=== PATIENT | female | born 1945 | race Caucasian/White ===

== ENCOUNTER 2018-08-07 15:04 | Inpatient (IN) | payer OTHER, BC ==
--- OUTSIDE RECORDS SUMMARY | 2018-08-07 15:09 | XMS REPORT ---
:1945 [facility] Organization [facility] Address [address] [place] [address] [place] [id number] Care Team Providers Name Role Phone Unavailable Unavailable Unavailable Problems This patient has no known problems. Allergies, Adverse Reactions, Alerts This patient has no known allergies or adverse reactions. Medications This patient has no known medications.
[2018-08-07 15:36] LABS: Arterial Blood Carboxyhemoglob 1.9 % (0-1.5); Blood Gas Oxyhemoglobin 92.4 % (94-97); Blood O2 Saturation 96.2 % (92-98.5)
[2018-08-07] MEDS ORDERED: ASPIRIN 81 MG CHEWABLE TABLET ONE (15:41)
[2018-08-07 16:00] LABS: Absolute Lymphocytes (CBC) 0.9 K/uL (0.7-4.9); Absolute Monocytes 0.8 K/uL (0.1-1.3); Absolute Neutrophil 6.8 K/uL (1.8-8.0); Basophils % 0.5 % (0-1.3); Eosinophils % 0.1 % (0-4.4); Hematocrit 51.7 % (36.0-45.0); Lymphocytes % 10.3 % (15.3-44.8); MPV 7.5 fL (7.6-11.3); Monocytes % 9.6 % (3.3-12.3)
--- NOTE | 2018-08-07 16:24 | RAD REPORT ---
EXAM DESCRIPTION: RAD - Chest Single View - 08/07/2018 4:11 pm CLINICAL HISTORY: Cough, shortness of breath, COPD COMPARISON: March 2014 TECHNIQUE: AP portable chest image was obtained 1555 hours . FINDINGS: Lungs are moderately fibrotic as a baseline. The fibrotic lung pattern has not substantial ly progressed from 2014. Airspace opacification is present in the right lung base in the lateral mid right lung field. Trace stranding in the medial left lung base. No failure or volume overload. Heart size and vasculature are normal. Mediastinum is distorted by substantial rotation artifact. No pneumo thorax is seen. Trace right pleural effusion is not excluded. No acute bony abnormality seen. No acut e aortic findings suspected. IMPRESSION: Small right lung base pneumonia with minimal pneumonia changes in the right midlung fiel d as well. Minimal stranding in the medial left lung base. This is not definitive for infiltrate but can be ephraim tored on subsequent imaging. Baseline fibrosis.
[2018-08-07 16:25] LABS: Albumin 2.5 g/dL (3.4-5.0); Bilirubin Direct 0.4 mg/dL (0-0.2); Bilirubin Total 0.7 mg/dL (0.2-1.0); CKMB Creatine Kinase MB 1.6 ng/mL (0.3-3.6); Protein, Total 6.9 g/dL (6.4-8.2); Troponin (Emerg Dept Use Only) 0.17 ng/mL (0.0-0.045)
--- NOTE | 2018-08-07 16:39 | ER ---
Nurse's Notes [facility] Name: Denys Antoine Age: 73 yrs Sex: Female : 1945 Arrival Date: 08/07/2018 Time: 15:09 Bed 23 Private MD: Diagnosis: Respiratory failure, unspecified with hypercapnia;Chronic obstructive pulmonary disease with acute lower respiratory infection;Elevated troponin Presentation: 08/07 15:10 Presenting complaint: EMS states: called out for shortness of breath for several days, em on scene SPO2 78% RA, given A\\T\\A treatment on scene, 93% with treatment, coughing up green sputum, on arrival SPO2 72% RA, placed on nonrebreather at 15 L. Transition of care: patient was not received from another setting of care. Onset of symptoms was August 07, 2018. Risk Assessment: Do you want to hurt yourself or someone else? Patient reports no desire to harm self or others. Initial Sepsis Screen: Does the patient meet any 2 criteria? No. Patient's initial sepsis screen is negative. Does the patient have a suspected source of infection? Yes: Productive cough/pneumonia. Care prior to arrival: None. 15:10 Method Of Arrival: EMS: [facility] em 15:15 Acuity: HAO 2 ph Triage Assessment: 15:17 General: Appears uncomfortable, ill, Behavior is cooperative, flat, Reports feeling ill em for Denies fever. Pain: Denies pain. Respiratory: Reports shortness of breath Airway is patent Respiratory effort is even, unlabored, Respiratory pattern is regular, symmetrical, Breath sounds with wheezes bilaterally. Onset: The symptoms/episode began/occurred "couple days" per daughter, the patient has moderate shortness of breath. Historical: - Allergies: 15:17 No Known Allergies; em - PMHx: 15:17 "heart flutter"; COPD; Asthma; em - PSHx: 15:17 Tubal ligation; Tonsillectomy; Cholecystectomy; Gastric Bypass; toe surgery; perforated em ulcer repair; - Immunization history:: Flu vaccine is not up to date. - Social history:: Smoking status: unknown. - Ebola Screening: : Patient negative for fever greater than or equal to 101.5 degrees Fahrenheit, and additional compatible Ebola Virus Disease symptoms Patient denies exposure to infectious person Patient denies travel to an Ebola-affected area in the 21 days before illness onset No symptoms or risks identified at this time. Screenin:26 Abuse screen: Denies threats or abuse. Nutritional screening: No deficits noted. tw2 Tuberculosis screening: No symptoms or risk factors identified. Fall Risk Secondary diagnosis (15 points) impaired mobility. Assessment: 15:25 General: Appears distressed. Pain: Denies pain. Neuro: Level of Consciousness is obeys tw2 commands, Oriented to person. Cardiovascular: Heart tones S1 S2 Capillary refill < 3 seconds Rhythm is regular. Respiratory: Reports shortness of breath at rest Airway is patent Respiratory effort is even, labored, Respiratory pattern is tachypnea Breath sounds are diminished bilaterally. GI: No signs and/or symptoms were reported involving the gastrointestinal system. Abdomen is flat, Bowel sounds present X 4 quads. : No signs and/or symptoms were reported regarding the genitourinary system. EENT: No signs and/or symptoms were reported regarding the EENT system. Derm: No signs and/or symptoms reported regarding the dermatologic system. Musculoskeletal: Range of motion: intact in all extremities. 15:39 Reassessment: respiratory at bedside at this time, pt placed on bipap at this time d/t tw2 elevated CO2. 16:36 Reassessment: Patient appears in no apparent distress at this time. Patient and/or tw2 family updated on plan of care and expected duration. Pain level reassessed. 17:13 Reassessment: Patient appears in no apparent distress at this time. Patient and/or tw2 family updated on plan of care and expected duration. Pain level reassessed. 19:30 Reassessment: Patient appears in no apparent distress at this time. Patient and/or aa1 family updated on plan of care and expected duration. Pain level reassessed. Patient is alert, oriented x 3, equal unlabored respirations, skin warm/dry/pink. Pt awaiting admission to ICU. Requesting food. Pt given sandwich and fruit cup and placed on nasal cannula at 5L at this time; tolerates well. 20:00 Reassessment: records supervisor aware that pt is in need of ICU bed. Will notify ED once aa1 pt has received a bed. 20:30 Reassessment: Patient appears in no apparent distress at this time. Patient and/or aa1 family updated on plan of care and expected duration. Pain level reassessed. Patient is alert, oriented x 3, equal unlabored respirations, skin warm/dry/pink. Pt still awaiting ICU bed. 21:14 Reassessment: Patient appears in no apparent distress at this time. Patient and/or aa1 family updated on plan of care and expected duration. Pain level reassessed. Patient is alert, oriented x 3, equal unlabored respirations, skin warm/dry/pink. Pt still awaiting ICU bed. 22:30 Reassessment: Charge nurse notified that pt still has not received a bed assignment for [facility] ICU and asked if pt needs to be placed in ER hold at this time. Charge nurse to contact housekeeper caregiver for further information on possibility of receiving ICU bed. 22:35 Reassessment: Patient appears in no apparent distress at this time. No changes from aa1 previously documented assessment. Patient and/or family updated on plan of care and expected duration. Pain level reassessed. Pt continues to await bed assignment. 08/08 01:00 Reassessment: Patient appears in no apparent distress at this time. Patient and/or aa1 family updated on plan of care and expected duration. Pain level reassessed. Pt resting quietly, daughter at bedside. Pt to be held in ED until nurse can come up to ICU to assume care for pt. Respiratory: Respiratory effort is even, unlabored. Derm: Skin is pink, warm \\T\\ dry. Vital Signs: 08/07 15:17 BP 129 / 49; Pulse 76; Resp 20; Temp 98.6(O); Pulse Ox 72% on R/A; Pain 0/10; em 15:18 Pulse Ox 93% on Non-rebreather mask; em 15:39 Pulse Ox 93% on 50% BiPAP; tw2 15:45 Pulse Ox 90% on 50% BiPAP; tw2 16:35 BP 142 / 49; Pulse 69; Resp 16; Pulse Ox 94% on BiPAP; tw2 17:13 BP 131 / 55; Pulse 65; Resp 17; Pulse Ox 96% on BiPAP; tw2 18:06 BP 126 / 58; Pulse 69; Resp 17; Pulse Ox 94% on BiPAP; tw2 19:30 BP 126 / 62; Pulse 67; Resp 20; Pulse Ox 93% on 5 lpm NC; aa1 20:30 BP 100 / 45; Pulse 68; Resp 22; Pulse Ox 96% on BiPAP; Pain 0/10; aa1 21:20 BP 92 / 48; Pulse 67; Resp 20; Temp 97.0(A); Pulse Ox 96% on BiPAP; Pain 0/10; aa1 22:35 BP 100 / 35; Pulse 68; Resp 22; Pulse Ox 91% on BiPAP; Pain 0/10; aa1 08/08 00:00 BP 96 / 49; Pulse 71; Resp 24; Pulse Ox 92% on BiPAP; Pain 0/10; aa1 01:00 BP 111 / 42; Pulse 65; Resp 22; Temp 97.0(A); Pulse Ox 93% on BiPAP; Pain 0/10; aa1 03 15:39 16/7 will continue to monitor tw2 15:45 169 tw2 ED Course: 15:09 Patient arrived in ED. em 15:12 Mike Pepe MD is Attending Physician. kdr 15:12 Karla Mcfadden FNP-C is [facility]. kdr 15:15 Triage completed. ph 15:25 Rebecca Waters RN is Primary Nurse. tw2 15:26 Arm band placed on. tw2 15:26 Bed in low position. Call light in reach. Adult w/ patient. public information director on. Pulse tw2 ox on. NIBP on. 15:31 EKG done, by biomedical repair technician. reviewed by Karla ADAMES. sm3 16:11 Chest Single View XRAY In Process Unspecified. EDMS 16:33 Missed attempt(s): 22 gauge in left hand. Bleeding controlled, band aid applied, tw2 catheter tip intact. 16:34 Hayden Salgado DO is Hospitalizing Provider. snw 19:02 Report given to VALDO Jefferson, URINE OUTSTANDING AT THIS TIME. tw2 08/08 01:21 No provider procedures requiring assistance completed. Patient admitted, IV remains in aa1 place. Administered Medications: 08/07 15:31 Drug: Aspirin Chewable Tablet 324 mg Route: PO; tw2 15:33 Follow up: Response: No adverse reaction tw2 16:57 Drug: LevaQUIN 500 mg Volume: 100 ml; Route: IVPB; Infused Over: 60 mins; Site: left tw2 forearm; 18:06 Follow up: Response: No adverse reaction; IV Status: Completed infusion tw2 Outcome: 16:38 Decision to Hospitalize by Provider. snw 08/08 01:00 Admitted to ER Hold. Please see [facility] for further documentation. aa1 Condition: stable Discharge instructions given to patient, family, Instructed on the need for admit, Demonstrated understanding of instructions. 02:47 Patient left the ED. bb Signatures: Dispatcher [employer] EDMS Li Angulo RN RN aa1 Mike Pepe MD MD kdr Therrien, Shelly, FAST FOOD TEAM MEMBER-C FAST FOOD TEAM MEMBER-Csnw Rajan Conley, FUR PULLER FUR PULLER em Jennifer Mabry RN RN bb Iliana Velez RN VALDO Rebecca Waters RN RN tw2 Adina Sorenson 3 Corrections: (The following items were deleted from the chart) 08/07 19:04 19:02 Report given to VALDO Jefferson tw2 tw2 19:31 19:30 Reassessment: Patient appears in no apparent distress at this time. Patient aa1 and/or family updated on plan of care and expected duration. Pain level reassessed. Patient is alert, oriented x 3, equal unlabored respirations, skin warm/dry/pink. Pt awaiting admission to ICU. Requesting food. Pt given sandwich and fruit cup at this time; tolerates well aa1
--- NOTE | 2018-08-07 16:39 | EDPHYS ---
Physician Documentation [facility] Name: Denys Antoine Age: 73 yrs Sex: Female : 1945 Arrival Date: 08/07/2018 Time: 15:09 Bed 23 Private MD: ED Physician Mike Pepe HPI: 08/07 15:44 This 73 yrs old Female presents to ER via EMS with complaints of Shortness Of snw Breath. 15:44 The patient has shortness of breath at rest. Onset: The symptoms/episode began/occurred snw 4 day(s) ago, and became worse today, and became persistent. Duration: The symptoms are continuous. The patient's shortness of breath is aggravated by talking. Associated signs and symptoms: The patient has no apparent associated signs or symptoms. Severity of symptoms: At their worst the symptoms were moderate severe in the emergency department the symptoms are worse. It is unknown whether or not the patient has had similar symptoms in the past. The patient has not recently seen a physician, the patient's primary care provider is Dr. Toscano. Historical: - Allergies: 15:17 No Known Allergies; em - PMHx: 15:17 "heart flutter"; COPD; Asthma; em - PSHx: 15:17 Tubal ligation; Tonsillectomy; Cholecystectomy; Gastric Bypass; toe surgery; perforated em ulcer repair; - Immunization history:: Flu vaccine is not up to date. - Social history:: Smoking status: unknown. - Ebola Screening: : Patient negative for fever greater than or equal to 101.5 degrees Fahrenheit, and additional compatible Ebola Virus Disease symptoms Patient denies exposure to infectious person Patient denies travel to an Ebola-affected area in the 21 days before illness onset No symptoms or risks identified at this time. ROS: 15:42 Eyes: Negative for injury, pain, redness, and discharge, ENT: Negative for injury, snw pain, and discharge, Neck: Negative for injury, pain, and swelling, Cardiovascular: Negative for chest pain, palpitations, and edema. 15:42 Back: Negative for injury and pain, : Negative for injury, bleeding, discharge, and swelling, MS/Extremity: Negative for injury and deformity, Skin: Negative for injury, rash, and discoloration, Neuro: Negative for headache, weakness, numbness, tingling, and seizure, Psych: Negative for depression, anxiety, suicide ideation, homicidal ideation, and hallucinations. 15:42 Constitutional: Positive for body aches, fatigue, malaise. 15:42 Respiratory: Positive for cough, dyspnea on exertion, orthopnea, wheezing. 15:42 Abdomen/GI: Positive for nausea, diarrhea. Exam: 15:40 Head/Face: Normocephalic, atraumatic. Eyes: Pupils equal round and reactive to light, snw extra-ocular motions intact. Lids and lashes normal. Conjunctiva and sclera are non-icteric and not injected. Cornea within normal limits. Periorbital areas with no swelling, redness, or edema. ENT: Nares patent. No nasal discharge, no septal abnormalities noted. Tympanic membranes are normal and external auditory canals are clear. Oropharynx with no redness, swelling, or masses, exudates, or evidence of obstruction, uvula midline. Mucous membranes moist. Neck: Trachea midline, no thyromegaly or masses palpated, and no cervical lymphadenopathy. Supple, full range of motion without nuchal rigidity, or vertebral point tenderness. No Meningismus. Chest/axilla: Normal chest wall appearance and motion. Nontender with no deformity. No lesions are appreciated. 15:40 Abdomen/GI: Soft, non-tender, with normal bowel sounds. No distension or tympany. No guarding or rebound. No evidence of tenderness throughout. Back: No spinal tenderness. No costovertebral tenderness. Full range of motion. 15:40 Constitutional: The patient appears awake, anxious, in obvious distress, uncomfortable. 15:40 Cardiovascular: Rate: normal, Rhythm: regular. 15:40 Respiratory: severe repiratory distress is noted, Respirations: intercostal retractions, shallow respirations, tachypnea, Breath sounds: decreased breath sounds. 15:40 Skin: Appearance: Color: dusky, Temperature: cool, Moisture: dry. 15:40 Neuro: Orientation: is normal, Mentation: is normal, Gait: not tested. Vital Signs: 15:17 BP 129 / 49; Pulse 76; Resp 20; Temp 98.6(O); Pulse Ox 72% on R/A; Pain 0/10; em 15:18 Pulse Ox 93% on Non-rebreather mask; em 15:39 Pulse Ox 93% on 50% BiPAP; tw2 15:45 Pulse Ox 90% on 50% BiPAP; tw2 16:35 BP 142 / 49; Pulse 69; Resp 16; Pulse Ox 94% on BiPAP; tw2 17:13 BP 131 / 55; Pulse 65; Resp 17; Pulse Ox 96% on BiPAP; tw2 18:06 BP 126 / 58; Pulse 69; Resp 17; Pulse Ox 94% on BiPAP; tw2 19:30 BP 126 / 62; Pulse 67; Resp 20; Pulse Ox 93% on 5 lpm NC; aa1 20:30 BP 100 / 45; Pulse 68; Resp 22; Pulse Ox 96% on BiPAP; Pain 0/10; aa1 21:20 BP 92 / 48; Pulse 67; Resp 20; Temp 97.0(A); Pulse Ox 96% on BiPAP; Pain 0/10; aa1 22:35 BP 100 / 35; Pulse 68; Resp 22; Pulse Ox 91% on BiPAP; Pain 0/10; aa1 08/08 00:00 BP 96 / 49; Pulse 71; Resp 24; Pulse Ox 92% on BiPAP; Pain 0/10; aa1 01:00 BP 111 / 42; Pulse 65; Resp 22; Temp 97.0(A); Pulse Ox 93% on BiPAP; Pain 0/10; aa1 08/07 15:39 16/7 will continue to monitor tw2 15:45 16/9 tw2 MDM: 15:12 Patient medically screened. kdr 16:38 Data reviewed: vital signs, nurses notes. Data interpreted: Pulse oximetry: on 78% on snw EMS arrival, 91% on my arrival to pt's room. 16:41 Counseling: I had a detailed discussion with the patient and/or guardian regarding: the snw historical points, exam findings, and any diagnostic results supporting the discharge/admit diagnosis, the need for further work-up and treatment in the hospital. Physician consultation: Hayden Salgado DO was called at 16:30, was contacted at 16:30, regarding admission, to the ICU. 08/07 15:27 Order name: ABG; Complete Time: 15:59 eb 08/07 15:27 Order name: Flu; Complete Time: 16:23 eb 08/07 15:29 Order name: Basic Metabolic Panel [facility] 08/07 15:29 Order name: Blood Culture Adult (2) [facility] 08/07 15:29 Order name: CBC with Diff; Complete Time: 16:02 snw 08/07 15:29 Order name: Ckmb; Complete Time: 16:30 snw 08/07 15:29 Order name: CPK; Complete Time: 16:30 snw 08/07 15:29 Order name: Lactate; Complete Time: 16:23 snw 08/07 15:29 Order name: LFT's; Complete Time: 16:30 snw 08/07 15:29 Order name: Lipase; Complete Time: 16:30 snw 08/07 15:29 Order name: Procalcitonin; Complete Time: 17:16 snw 08/07 15:29 Order name: Protime (+inr); Complete Time: 17:16 snw 08/07 15:29 Order name: Ptt, Activated; Complete Time: 17:16 snw 08/07 15:29 Order name: Troponin (emerg Dept Use Only); Complete Time: 16:30 snw 08/07 15:27 Order name: BIPAP eb 08/07 15:29 Order name: Urine Microscopic Only snw 08/07 15:29 Order name: Chest Single View XRAY; Complete Time: 16:30 snw 08/07 15:29 Order name: Cardiac monitoring; Complete Time: 15:31 snw 08/07 15:30 Order name: Basic Metabolic Panel; Complete Time: 16:30 EDMS 08/07 15:30 Order name: Blood Culture EDMS 08/07 17:34 Order name: EKG Electrocardiogram EDMS 08/08 00:29 Order name: ABG Arterial Blood Gas; Complete Time: 00:47 EDMS 08/08 02:34 Order name: Creatine Phosphokinase; Complete Time: 02:47 EDMS 08/08 02:34 Order name: CKMB Creatine Kinase MB; Complete Time: 02:47 EDMS 08/08 02:34 Order name: Troponin I; Complete Time: 02:47 EDMS 08/08 02:34 Order name: T4 Free; Complete Time: 02:47 EDMS 08/08 02:34 Order name: Thyroid Stimulating Hormone; Complete Time: 02:47 EDMS 08/07 15:29 Order name: EKG - Nurse/Tech; Complete Time: 15:31 snw 08/07 15:29 Order name: IV Saline Lock - Large Bore; Complete Time: 15:59 snw 08/07 15:29 Order name: Labs collected and sent; Complete Time: 15:59 snw 08/07 15:29 Order name: O2 Per Protocol; Complete Time: 15:32 snw 08/07 15:29 Order name: O2 Sat Monitoring; Complete Time: 15:32 snw Administered Medications: 15:31 Drug: Aspirin Chewable Tablet 324 mg Route: PO; tw2 15:33 Follow up: Response: No adverse reaction tw2 16:57 Drug: LevaQUIN 500 mg Volume: 100 ml; Route: IVPB; Infused Over: 60 mins; Site: left tw2 forearm; 18:06 Follow up: Response: No adverse reaction; IV Status: Completed infusion tw2 Disposition: 08/07/18 16:38 Hospitalization ordered by Hayden Salgado for Inpatient Admission. Preliminary diagnosis are Respiratory failure, unspecified with hypercapnia, Chronic obstructive pulmonary disease with acute lower respiratory infection, Elevated troponin. - Bed requested for Intensive Care Unit. - Status is Inpatient Admission. bb - Condition is Fair. - Problem is an acute exacerbation. - Symptoms have worsened. UTI on Admission? No Addendum: 08/10/2018 06:46 Co-signature as Attending Physician, Mike Pepe MD I agree with the assessment and k dr plan of care. Signatures: Dispatcher [employer] [facility] Narcisa Lynch, Mike Santiago RN, MD MD [facility] Karla Mcfadden, CYLINDER MACHINE OPERATOR PULP DRIER-C CYLINDER MACHINE OPERATOR PULP DRIER-Csnw Rajan Conley, ACRYLIC FABRICATOR ACRYLIC FABRICATOR em Jennifer Mabry RN RN Rebecca Dickerson RN RN tw2 Corrections: (The following items were deleted from the chart) 08/07 15:32 15:30 Blood Culture ordered. [facility] 08/08 00:42 08/07 16:38 Hospitalization Ordered by Hayden Salgado DO for Inpatient Admission. kl Preliminary diagnosis is Respiratory failure, unspecified with hypercapnia; Chronic obstructive pulmonary disease with acute lower respiratory infection; Elevated troponin. Bed requested for Intensive Care Unit. Status is Inpatient Admission. Condition is Fair. Problem is an acute exacerbation. Symptoms have worsened. UTI on Admission? No. snw 08/08 02:12 00:42 08/07/2018 16:38 Hospitalization Ordered by Hayden Salgado DO for Inpatient kl Admission. Preliminary diagnosis is Respiratory failure, unspecified with hypercapnia; Chronic obstructive pulmonary disease with acute lower respiratory infection; Elevated troponin. Bed requested for [facility] ER HOLD. Status is Inpatient Admission. Condition is Fair. Problem is an acute exacerbation. Symptoms have worsened. UTI on Admission? No. kl 02:47 02:12 08/07/2018 16:38 Hospitalization Ordered by Hayden Salgado DO for Inpatient bb Admission. Preliminary diagnosis is Respiratory failure, unspecified with hypercapnia; Chronic obstructive pulmonary disease with acute lower respiratory infection; Elevated troponin. Bed requested for Intensive Care Unit. Status is Inpatient Admission. Condition is Fair. Problem is an acute exacerbation. Symptoms have worsened. UTI on Admission? No. kl
--- NOTE | 2018-08-07 17:03 | P.HP ---
Certification for Inpatient Patient admitted to: Inpatient With expected LOS: >2 Midnights Patient will require the following post-hospital care: None Practitioner: I am a practitioner with admitting privileges, knowledge of patient current condition, hospital course, and medical plan of care. Services: Services provided to patient in accordance with Admission requirements found in Title 42 Section 412.3 of the Code of Federal Regulations Patient History Date of Service: 08/07/18 Primary Care Provider: Dr. James; Cardiology-Dr. Clark Reason for admission: SOB History of Present Illness: 73 yo CF presented to the ER by EMS. She was having SOB other the last couple of days and became worse. She denies fever or chills. She has history of COPD, GERD, A. fib, HTN and Tobacco/alcohol abuse. She is oxygen dependent. EMS reported oxygen sats around 78%. She was tachynic and tachycardia. In the ER, WBC slightly elevated. Procalcitonin within normal limits. Trop slightly elevated. Chest x-ray shows possible pneumonia. Patient was started on BiPAP in the emergency room. She was given breathing treatments. Antibiotics initiated. Patient stable at this time. When I saw the patient in ER, she was resting. She did not appear septic. Patient on BiPAP. Patient reported increasing weakness over the last several days with shortness of breath. Patient is a heavy smoker. She also drinks alcohol. Allergies No Known Allergies Allergy (Verified 08/17/12 02:25) Home medications list reviewed: Yes Home Medications: Fluticasone/Salmeterol [Advair 250/50 Diskus*] 1 puff IH BID 08/17/12 Ipratrop/Albuterol Inhaler [Combivent*] 2 puff IH TID 08/17/12 Omeprazole [Prilosec] 20 mg PO DAILY 08/17/12 Orphenadrine Citrate 100 mg PO TID 08/17/12 Sotalol HCl [Sotalol] 80 mg PO BID #30 tablet 08/19/12 - Past Medical/Surgical History Diabetic: No -: COPD -: Tobacco abuse -: HTN -: A. fib -: GERD -: Alcohol abuse Past Surgical History: Patient denies surgical history Psychosocial/ Personal History: Lives at home - Family History Family History: Reviewed- Non-Contributory - Social History Smoking Status: Heavy Tobacco smoker (>10 cigarettes/day) Counseled patient to stop smoking for: less than 10 minutes Smoking therapy provided: Yes Patient receptive to therapy: No Alcohol use: Yes CD- Drugs: No Caffeine use: Yes Place of Residence: Home Review of Systems General: Weakness, Malaise Eyes: Unremarkable ENT: Nose Congestion, As per HPI Respiratory: Cough, Shortness of Breath, SOB with Excertion, Wheezing, As per HPI Cardiovascular: Unremarkable Gastrointestinal: Unremarkable Genitourinary: Unremarkable Musculoskeletal: Unremarkable Integumentary: Unremarkable Neurological: Unremarkable Lymphatics: Unremarkable Physical Examination - Physical Exam General: Alert, In no apparent distress, Mild distress, Other (on BIPAP) HEENT: Atraumatic, Normocephalic, Other (Dry mucous membranes) Neck: Supple Respiratory: Diminished (bilateral, poor insp/exp) Cardiovascular: Normal pulses, Regular rate/rhythm Gastrointestinal: Normal bowel sounds, Soft and benign, Non-distended, No tenderness, No masses, No rebound, No guarding Musculoskeletal: No erythema, No tenderness, No warmth Integumentary: No tenderness/swelling, No erythema, No warmth, No cyanosis Neurological: Normal speech, Normal strength at 5/5 x4 extr, Normal tone, Normal affect, Other (Dry skin) - Studies Laboratory Data (last 24 hrs) 08/07/18 15:45: WBC 8.5, Hgb 16.3 H, Hct 51.7 H, Plt Count 286 08/07/18 15:45: Sodium 139, Potassium 5.0, BUN 45 H, Creatinine 0.98, Glucose 107 H, Total Bilirubin 0.7, AST 13 L, ALT 11 L, Alkaline Phosphatase 122 H, Lipase 62 L Microbiology Data (last 24 hrs): 08/07/18 15:45 Nasopharnyx Influenza Type A Antigen Screen - Final 08/07/18 15:45 Nasopharnyx Influenza Type B Antigen Screen - Final Assessment and Plan - Plan Impression: Acute on chronic respiratory failure secondary to COPD exacerbation with right sided pneumonia Chronic atrial fibrillation not on chronic anticoagulation Elevated Troponin likely from respiratory failure HTN Tobacco/alcohol abuse GERD Acute renal injury likely dehydration Plan: Acute on chronic respiratory failure secondary to COPD exacerbation with right sided pneumonia: Admit to ICU. Continue with BiPAP, Solu medrol and COPD medication. Will start Levaquin. Will monitor lab/telemetry and recheck CXR in the am. Blood ans sputum cultures obtained. Will consult Pulmonary and Cardiology to further address. Will obtain ECHO. Chronic atrial fibrillation not on chronic anticoagulation: Continue with Sotalol. Will add DVT prophylaxis. Consult Cardiology. Will obtain ECHO Elevated Troponin likely from respiratory failure: Continue as above. Will monitor cardiac enzymes. HTN: Restart home medication-Lisinopril. Tobacco/alcohol abuse: Cessation addressed. May need Nicotine patch. Will provide folic acid and thiamine. GERD:Will start Pepcid Acute renal injury likely dehydration: Will start IV fluids. Discharge Plan: Home Plan to discharge in: Greater than 2 days - Advance Directives Does patient have a Living Will: Yes Does patient have a Durable POA for Healthcare: No - Code Status/Comfort Care Code Status Assessed: Yes (patient is full code) Time Spent Managing Pts Care (In Minutes): 55
[2018-08-07] MEDS ORDERED: Levofloxacin500mg IV 500 MG/100 ML BAG IV ONE (17:04)
[2018-08-07 17:05] LABS: Protime INR 0.96
[2018-08-07] MEDS: FAMOTIDINE 20 MG/2 ML VIAL IV SCH (23:30)
[2018-08-07] MEDS ORDERED: ACETAMINOPHEN 500 MG TAB PO PRN (23:30)
[2018-08-07] MEDS: ARFORMOTEROL TARTRATE 15 MCG/2 ML VIAL.NEB NEB SCH (23:30)
[2018-08-07] MEDS ORDERED: IPRATROPIUM BROM 0.5MG/2.5ML NEB PRN (23:30)
[2018-08-07] MEDS ORDERED: ONDANSETRON 4 MG/2 ML VIAL IV PRN (23:30)
[2018-08-07] MEDS: GUAIFENESIN 600 MG SA TAB PO SCH (23:30)
[2018-08-07] MEDS ORDERED: Levofloxacin500mg IV 500 MG/100 ML BAG IV SCH (23:30)
[2018-08-07] MEDS ORDERED: LORazepam 2 MG/ML VIAL IV PRN (23:30)
[2018-08-07] MEDS: METHYLPREDNISOLONE 40 MG INJ IV SCH (23:30)
[2018-08-07] MEDS: SOTALOL HCL 80 MG TAB PO SCH (23:30)
[2018-08-07] MEDS ORDERED: ALBUTEROL 2.5 MG/3 ML NEB SOL NEB PRN (23:30)
[2018-08-07] MEDS: NA CHLORIDE 0.9% 1,000 ML IV SCH (23:30)
[2018-08-08 00:26] LABS: Arterial Blood Carboxyhemoglob 1.3 % (0-1.5); Blood Gas Oxyhemoglobin 89.5 % (94-97); Blood O2 Saturation 92.3 % (92-98.5)
[2018-08-08] MEDS: METHYLPREDNISOLONE 40 MG INJ IV SCH ×3 (01:00→16:29)
[2018-08-08 02:34] LABS: CKMB Creatine Kinase MB 1.5 ng/mL (0.3-3.6); Thyroid Stimulating Hormone 0.507 uIU/mL (0.360-3.740); Troponin I 0.12 ng/mL (0.0-0.045)
[2018-08-08] MEDS: SOTALOL HCL 80 MG TAB PO SCH (06:00)
[2018-08-08] MEDS: NA CHLORIDE 0.9% 1,000 ML IV SCH ×2 (06:56→21:23)
[2018-08-08 07:04] LABS: Absolute Lymphocytes (CBC) 0.4 K/uL (0.7-4.9); Absolute Monocytes 0.1 K/uL (0.1-1.3); Absolute Neutrophil 6.6 K/uL (1.8-8.0); Basophils % 0.4 % (0-1.3); Eosinophils % 0.1 % (0-4.4); Hematocrit 49.4 % (36.0-45.0); Lymphocytes % 5.3 % (15.3-44.8); MPV 8.2 fL (7.6-11.3); Monocytes % 1.8 % (3.3-12.3); RBC Red Blood Cell Count 4.93 M/uL (3.86-4.86)
--- NOTE | 2018-08-08 07:17 | EKG ---
Test Date: 2018-08-07 Test Time: 15:27:22 Ship Fitter: MIGUELANGEL MEASUREMENT RESULTS: Intervals: Rate: 83 [place]: 152 QRSD: 146 QT: 430 QTc: 505 [place]: P: 67 [place]: 152 QRS: 252 T: 42 INTERPRETIVE STATEMENTS: Normal sinus rhythm Right bundle branch block Abnormal ECG Compared to ECG 03/17/2014 02:12:03 Left anterior fascicular block no longer present Bifascicular block no longer present Electronically Signed On 08-08-18 07:16:29 OPERATIONS AND INTELLIGENCE ASSISTANT by Tarun Edmonds
[2018-08-08 07:23] LABS: Potassium 5.5 mmol/L (3.5-5.1)
--- NOTE | 2018-08-08 07:55 | RAD REPORT ---
EXAM DESCRIPTION: RAD - Chest Single View - 08/08/2018 6:29 am CLINICAL HISTORY: Respiratory failure COMPARISON: August 07 TECHNIQUE: AP portable chest image was obtained 0534 hours . FINDINGS: Baseline fibrotic pattern again noted. Right base pleural and parenchymal opacification ar e not clearly different. Rotation artifact remains. Heart and vasculature are normal. No pneumothorax or enlarging pleural effusion. No acute bony abnormality seen. No acute aortic findings suspected. IMPRESSION: Right base pleural and parenchymal opacification similar to prior study. No new or progressive finding.
[2018-08-08 08:38] LABS: Blood Morphology Comment NOT SEEN (NOT SEEN); Platelet Estimate ADEQ
[2018-08-08] MEDS: ARFORMOTEROL TARTRATE 15 MCG/2 ML VIAL.NEB NEB SCH ×2 (08:43→20:00)
[2018-08-08] MEDS ORDERED: LISINOPRIL 20 MG TAB PO SCH (09:00)
--- NOTE | 2018-08-08 09:08 | P.PN ---
Subjective Date of Service: 08/08/18 Primary Care Provider: Dr. James; Cardiology-Dr. Clark Chief Complaint: SOB Subjective: Other (Patient remains on BiPAP. Slight improvement noted) Physical Examination - Vital Signs Temperature: 97 F Blood Pressure: 92/34 Pulse: 56 Respirations: 21 Pulse Ox (%): 89 - Physical Exam General: Alert, In no apparent distress, Oriented x3, Cooperative HEENT: Atraumatic Neck: Supple Respiratory: Expiratory wheezes (Bilateral), Inspiratory wheezes (Bilateral), Other (Poor inspiration and expiration) Cardiovascular: Regular rate/rhythm Gastrointestinal: Normal bowel sounds, Soft and benign, Non-distended, No masses , No rebound, No guarding Musculoskeletal: No erythema, No tenderness, No warmth Integumentary: No erythema, No warmth, No cyanosis Neurological: Normal speech, Normal strength at 5/5 x4 extr, Normal tone, Normal affect - Studies Laboratory Data (last 24 hrs) 08/07/18 16:35: PT 11.4, INR 0.96, APTT 26.0 08/07/18 15:45: WBC 8.5, Hgb 16.3 H, Hct 51.7 H, Plt Count 286 08/07/18 15:45: Sodium 139, Potassium 5.0, BUN 45 H, Creatinine 0.98, Glucose 107 H, Total Bilirubin 0.7, AST 13 L, ALT 11 L, Alkaline Phosphatase 122 H, Lipase 62 L Microbiology Data (last 24 hrs): 08/07/18 15:45 Nasopharnyx Influenza Type A Antigen Screen - Final 08/07/18 15:45 Nasopharnyx Influenza Type B Antigen Screen - Final Medications List Reviewed: Yes Assessment & Plan Discharge Plan: Other (Patient will likely require skilled placement) Plan to discharge in: Greater than 2 days Physician Review Additional Text: Impression: Acute on chronic respiratory failure secondary to COPD exacerbation with right sided pneumonia Chronic atrial fibrillation not on chronic anticoagulation Elevated Troponin likely from respiratory failure HTN Tobacco/alcohol abuse GERD Acute renal injury likely dehydration Hyperkalemia Plan: Acute on chronic respiratory failure secondary to COPD exacerbation with right sided pneumonia: Patient remains in ICU. Continue with BiPAP, Solu medrol and COPD medication. Patient remains on Levaquin. Respiratory to wean off BiPAP. Await further recommendations from pulmonology. Cardiology also consulted. Echocardiogram obtained. Patient will likely require skilled placement at discharge. Will monitor closely. Chronic atrial fibrillation not on chronic anticoagulation: Sotalol has been held due to low blood pressure. Await further recommendations from cardiology. Patient on DVT prophylaxis. Patient remains in sinus rhythm. Echo ordered. Elevated Troponin likely from respiratory failure: Continue as above. Will monitor cardiac enzymes. HTN: Will discontinue lisinopril due to low blood pressure. Will monitor closely off medication. Tobacco/alcohol abuse: Cessation addressed. May need Nicotine patch. Will provide folic acid and thiamine. GERD: Continue with Pepcid Acute renal injury likely dehydration: Continue with IV fluids. Hyperkalemia: Recheck potassium. Patient may require Kayexalate. Time Spent Managing Pts Care (In Minutes): 55
[2018-08-08] MEDS: FOLIC ACID 1 MG TABLET PO SCH (09:15)
[2018-08-08] MEDS: ASPIRIN EC 81 MG TAB PO SCH (09:15)
[2018-08-08] MEDS: GUAIFENESIN 600 MG SA TAB PO SCH ×2 (09:16→21:23)
[2018-08-08] MEDS: FAMOTIDINE 20 MG/2 ML VIAL IV SCH ×2 (09:16→21:28)
[2018-08-08] MEDS: THIAMINE HCL 100 MG TABLET PO SCH (09:16)
[2018-08-08] MEDS: ENOXAPARIN 40 MG/0.4 ML SQ SCH (09:16)
[2018-08-08 09:24] LABS: CKMB Creatine Kinase MB 1.6 ng/mL (0.3-3.6); Troponin I 0.12 ng/mL (0.0-0.045)
--- NOTE | 2018-08-08 13:41 | CON ---
History Of Present Illness: Ms. Antoine is 73. She came to the hospital because of the dyspnea. I a m asked to see her because #1, her troponins are elevated, and #2, her blood pressure gets low when s he takes all of her medicines she is on, and I was asked to see if there were any adjustments that mi ght be made. She has paroxysmal atrial fibrillation, is in sinus rhythm now. Sotalol is ordered as an outpatient, 40 b.i.d. They tried to continue that here, but it was held last night or early this morning because of the systolic blood pressure in the 90s. Most recent blood pressure is somewhat be tter. The patient does not remember the last time she had atrial fibrillation. She is not having ch est pain. She is a very heavy alcohol user and cigarette user and has no plans to stop either 1. Monica guillory has a history of severe obstructive lung disease. She has no history of heart surgery. She has pa roxysmal atrial fibrillation and takes Betapace, but not on chronic anticoagulation because of compli ance issues. She has renal insufficiency. Physical Examination: General: She appears to be much older than her stated age of 73, a little bit hostile and angry, not in any respiratory distress. Most recent blood pressure recorded 92/34, O2 saturation 89% on a Vent imask, was 60% FiO2, heart rate 56. Impression: The patient should probably just stop the Betapace, perhaps it could be resumed if she s tarts feeling better, but for the present time, we will just hold it. At the time of discharge, if h er blood pressure permits, we will resume Betapace 40 b.i.d. If she develops atrial fibrillation whange bean she is off Betapace here monitoring, we will then switch to another antiarrhythmic drug, perhaps one that will not lower her b lood pressure so much. MONICA/SHANIA Voice ID: [id number] Report ID: [id number]
[2018-08-08] MEDS: Levofloxacin500mg IV 500 MG/100 ML BAG IV SCH (17:06)
[2018-08-08] MEDS ORDERED: SOD POLYSTYREN SUL 15 GM/60 ML UCUP PO ONE (20:36)
[2018-08-08] MEDS: BENZONATATE 100 MG CAP PO PRN (21:30)
[2018-08-08] MEDS ORDERED: SOD POLYSTYREN SUL 15 GM/60 ML UCUP ONE (21:37)
[2018-08-09] MEDS: METHYLPREDNISOLONE 40 MG INJ IV SCH ×2 (00:33→08:54)
[2018-08-09 05:44] LABS: Absolute Lymphocytes (CBC) 0.5 K/uL (0.7-4.9); Absolute Monocytes 0.2 K/uL (0.1-1.3); Absolute Neutrophil 5.4 K/uL (1.8-8.0); Basophils % 0.2 % (0-1.3); Hematocrit 47.3 % (36.0-45.0); Lymphocytes % 8.8 % (15.3-44.8); MPV 7.5 fL (7.6-11.3); RBC Red Blood Cell Count 4.78 M/uL (3.86-4.86)
[2018-08-09 05:57] LABS: Potassium 5.3 mmol/L (3.5-5.1)
[2018-08-09 06:26] LABS: Urine Appearance CLOUDY; Urine Blood NEGATIVE (NEG); Urine Color DK YELLOW; Urine Glucose NEGATIVE (NEG); Urine Protein NEGATIVE (NEG); Urine Specific Gravity 1.015 (1.005-1.030)
[2018-08-09 06:35] LABS: Urine Bilirubin 1+ (NEG); Urine Microscopic Reflex NO UMIC
[2018-08-09] MEDS: ARFORMOTEROL TARTRATE 15 MCG/2 ML VIAL.NEB NEB SCH ×2 (08:13→19:34)
[2018-08-09] MEDS: ASPIRIN EC 81 MG TAB PO SCH (08:53)
[2018-08-09] MEDS: GUAIFENESIN 600 MG SA TAB PO SCH ×2 (08:53→21:08)
[2018-08-09] MEDS: FOLIC ACID 1 MG TABLET PO SCH (08:54)
[2018-08-09] MEDS: FAMOTIDINE 20 MG/2 ML VIAL IV SCH (08:54)
[2018-08-09] MEDS: THIAMINE HCL 100 MG TABLET PO SCH (08:54)
[2018-08-09] MEDS: ENOXAPARIN 40 MG/0.4 ML SQ SCH (08:54)
--- NOTE | 2018-08-09 09:13 | P.PN ---
Subjective Date of Service: 08/09/18 Primary Care Provider: Dr. James; Cardiology-Dr. Clark Chief Complaint: SOB Subjective: Improving (Patient continues to improve. Patient with poor oral intake.) Physical Examination - Vital Signs Temperature: 97.1 F Blood Pressure: 132/50 Pulse: 72 Respirations: 22 Pulse Ox (%): 94 - Physical Exam General: Alert, In no apparent distress, Oriented x3, Cooperative HEENT: Atraumatic Neck: Supple Respiratory: Expiratory wheezes, Inspiratory wheezes Cardiovascular: Normal pulses, Regular rate/rhythm Gastrointestinal: Normal bowel sounds, Soft and benign, Non-distended, No tenderness, No masses, No rebound, No guarding Musculoskeletal: No erythema, No tenderness, No warmth Integumentary: No tenderness/swelling, No erythema, No warmth, No cyanosis Neurological: Normal speech, Normal strength at 5/5 x4 extr, Normal tone, Normal affect - Studies Medications List Reviewed: Yes Assessment & Plan Discharge Plan: Other (prison facility) Plan to discharge in: Greater than 2 days Physician Review Additional Text: Impression: Acute on chronic respiratory failure secondary to COPD exacerbation with right sided pneumonia Chronic atrial fibrillation not on chronic anticoagulation Elevated Troponin likely from respiratory failure HTN Tobacco/alcohol abuse GERD Acute renal injury likely dehydration Hyperkalemia Plan: Acute on chronic respiratory failure secondary to COPD exacerbation with right sided pneumonia: Patient continues to improve. Wean off BiPAP, patient on home oxygen. Continue COPD medication and antibiotic therapy-Levaquin. Recheck chest x-ray today. If patient able to ambulate and tolerates food will transition patient to the floor. Await further recommendations from pulmonology. Will pursue skilled placement over the next couple of days. I will turn the service over to Dr. Ellis tomorrow. I will go over the plan of care with her. Chronic atrial fibrillation not on chronic anticoagulation: Sotalol discontinued by Cardiology. Will monitor off medication. If patient redevelops atrial fibrillation will need to consider other anti rhythm medication as recommended by Cardiology. Await further recommendations. Will monitor closely. Elevated Troponin likely from respiratory failure: Continue as above. Likely no need for cardiac intervention at this time. Will monitor cardiac enzymes. HTN: Patient off medication. Will monitor closely. Will add medication if required. Patient offered CARLOZ-inhibitor due to hyperkalemia Tobacco/alcohol abuse: Cessation addressed. May need Nicotine patch. Will continue with folic acid and thiamine. GERD: Continue with Pepcid Acute renal injury likely dehydration: Continue with IV fluids. Encourage oral intake. Hyperkalemia: Recheck potassium improved. Patient received Kayexalate yesterday. Will continue to monitor closely. Patient now off CARLOZ-inhibitor. Time Spent Managing Pts Care (In Minutes): 55
[2018-08-09] MEDS ORDERED: METOPROLOL TARTRATE 5 MG/5 ML INJ IV ONE (09:54)
[2018-08-09] MEDS: NA CHLORIDE 0.9% 1,000 ML IV SCH (10:53)
[2018-08-09] MEDS: SOTALOL HCL 80 MG TAB PO SCH ×2 (10:53→18:05)
[2018-08-09] MEDS ORDERED: ENOXAPARIN 80 MG/0.8 ML SQ SCH (11:10)
--- NOTE | 2018-08-09 11:11 | P.CNS ---
Date of Consult: 08/09/18 Primary Care Provider: Dr. James; Cardiology-Dr. Clark Chief Complaint: Respiratory failure History of Present Illness: Patient is 73 years of age for into the hospital for shortness of breath history of COPD tobacco abuse patient is on oxygen he was hypoxic transferred to the ICU is currently on BiPAP unresponsive patient is currently in SVT and was given some Lopressor Allergies No Known Allergies Allergy (Verified 08/08/18 03:25) Home Medications: Fluticasone/Salmeterol [Advair 250/50 Diskus*] 1 puff IH BID 08/17/12 Albuterol Inhaler [Ventolin Inhaler] 1 puff IH Q6H 08/08/18 Ferrous Sulfate [Ferrous Sulfate*] 1 tab PO DAILY 08/08/18 Ipratropium/Albuterol Sulfate [Combivent Respimat Inhal [place]] 2 puff IH Q6H PRN 08/08/18 Lisinopril/Hydrochlorothiazide [Lisinopril-Hctz 20-12.5 mg Tab] 1 each PO DAILY 08/08/18 Montelukast [Singulair] 10 mg PO DAILY 08/08/18 Omeprazole [Prilosec] 40 mg PO DAILY 08/08/18 Sotalol HCl [Sotalol] 40 mg PO BID 08/08/18 Tiotropium [Spiriva Handihaler] 2 puff IH DAILY 08/08/18 - Past Medical/Surgical History Diabetic: No -: COPD -: Tobacco abuse -: HTN -: A. fib -: GERD -: Alcohol abuse -: cholecystectomy -: gastric bypass -: carotid endardarectomy -: tonsillectomy -: tubal ligation Psychosocial/ Personal History: Lives at home - Social History Smoking Status: Current every day smoker, Unknown if ever smoked Alcohol use: Yes CD- Drugs: No Caffeine use: Yes Place of Residence: Home Review of Systems is unable to be obtained Physical Examination Temp Pulse Resp BP Pulse Ox 97.1 F 170 H 22 H 125/73 94 08/09/18 09:13 08/09/18 09:59 08/09/18 09:13 08/09/18 09:59 08/09/18 09:13 General: Unresponsive (Patient will open her eyes) Neck: Supple Respiratory: Clear to auscultation bilaterally, Diminished Cardiovascular: No edema, Normal pulses, Normal S1 S2 Capillary refill: >2 Seconds Gastrointestinal: Soft and benign - Problems (1) Acute and chronic respiratory failure Current Visit: Yes Status: Acute Plan: Patient is 73 years of age with a history of COPD admitted with hypoxic hypercapnic respiratory failure currently in SVT tobacco abuse chest x-ray shows diminished lung volumes on the right side she was hypoxic hypercapnic white count is normal check thyroid function tests resume patient's sotalol anti coagulated echocardiogram with Doppler CT angio Qualifiers: Respiratory failure complication: hypoxia and hypercapnia Qualified Code(s) : J96.21 - Acute and chronic respiratory failure with hypoxia; J96.22 - Acute and chronic respiratory failure with hypercapnia
--- NOTE | 2018-08-09 11:19 | RAD REPORT ---
EXAM DESCRIPTION: RAD - Chest Single View - 08/09/2018 9:43 am CLINICAL HISTORY: Follow up COPD Chest pain. COMPARISON: Chest Single View dated 08/08/2018; Chest Single View dated 08/07/2018; CHEST SINGLE VIEW da harjeet 03/17/2014; CHEST PA AND LAT 2 VIEW dated 07/20/2013 FINDINGS: Portable technique limits examination quality. Ill-defined right basilar lung opacity remains essentially stable with right-sided volume loss. Right upper lobe lung opacities appear mildly improved since comparative study. The lungs are diffusely em physematous. The heart is normal in size. No displaced fractures.
--- NOTE | 2018-08-09 12:38 | RAD REPORT ---
EXAM DESCRIPTION: CT - Chest For Pe Angio - 08/09/2018 12:30 pm CLINICAL HISTORY: Chest pain. Abnormal chest x-ray rule out pulmonary embolism COMPARISON: No comparisons TECHNIQUE: CT angiogram of the pulmonary arteries was performed with MIP. All CT scans are performed using dose optimization technique as appropriate and may include automated exposure control or mA/KV adjustment according to patient size. FINDINGS: No evidence of pulmonary thromboembolism. No acute aortic finding demonstrated. Ill-defined areas of tree-in-bud in the linear old infiltrates are present in the right lower lobe an d right middle lobe as well as the posterior right upper lobe most compatible infection/pneumonia. Mu cous plugging is seen in the posterior right lower lobe bronchus. The left lung appears emphysematous but clear. Small right pleural effusion is seen loculated appearance. Enlarged lymph nodes are present within th e mediastinum the largest in the pretracheal region measuring 17 mm. No concerning bony finding. Postsurgical changes are present about the stomach. No lytic or blastic b one lesion. IMPRESSION: No evidence of pulmonary thromboembolism. Small loculated right pleural effusion with right lower lobe infiltrate/ pneumonia suspected. Mucous plugging is suspected in the posterior right lower lobe bronchus.
[2018-08-09] MEDS ORDERED: METOPROLOL TARTRATE 5 MG/5 ML INJ IV STA (15:16)
--- NOTE | 2018-08-09 15:57 | PN ---
Mrs. Antoine was in atrial fib this morning. A single dose of metoprolol IV restored sinus rhythm. H er blood pressure is better, so I think we should reinstitute Betapace hopefully to keep her in sinus rhythm. Betapace 40 b.i.d. will be reinstituted. MONICA/SHANIA Voice ID: [id number] Report ID: [id number]
[2018-08-09] MEDS: Levofloxacin500mg IV 500 MG/100 ML BAG IV SCH (18:04)
[2018-08-09] MEDS: predniSONE 20 MG TAB PO SCH (21:07)
[2018-08-09] MEDS: FAMOTIDINE 20 MG TAB PO SCH (21:07)
[2018-08-09] MEDS: ENOXAPARIN 80 MG/0.8 ML SQ SCH (21:07)
[2018-08-10] MEDS: NA CHLORIDE 0.9% 1,000 ML IV SCH (00:40)
[2018-08-10 05:18] LABS: Absolute Lymphocytes (CBC) 0.7 K/uL (0.7-4.9); Absolute Monocytes 0.3 K/uL (0.1-1.3); Absolute Neutrophil 5.5 K/uL (1.8-8.0); Basophils % 0.3 % (0-1.3); Hematocrit 41.9 % (36.0-45.0); Lymphocytes % 10.3 % (15.3-44.8); MPV 7.7 fL (7.6-11.3); Monocytes % 4.9 % (3.3-12.3); RBC Red Blood Cell Count 4.26 M/uL (3.86-4.86)
[2018-08-10 05:32] LABS: Magnesium 1.6 mg/dL (1.8-2.4); Potassium 4.5 mmol/L (3.5-5.1)
[2018-08-10] MEDS: SOTALOL HCL 80 MG TAB PO SCH ×2 (06:00→17:06)
[2018-08-10] MEDS ORDERED: MAGNESIUM SULFATE 1 gm IVPB 1 GM/100 ML BAG IV ONE (06:30)
[2018-08-10] MEDS: ARFORMOTEROL TARTRATE 15 MCG/2 ML VIAL.NEB NEB SCH ×2 (08:00→20:00)
--- NOTE | 2018-08-10 08:29 | P.PN ---
Subjective Date of Service: 08/10/18 Primary Care Provider: Dr. James; Cardiology-Dr. Clark Chief Complaint: Respiratory failure Subjective: Improving (Patient is doing better she is more alert responsive cooperative [id number] history of COPD active smoker compliant with her medications) Review of Systems General: Weakness Respiratory: Shortness of Breath Physical Examination - Vital Signs Temperature: 98.2 F Blood Pressure: 126/51 Pulse: 63 Respirations: 20 Pulse Ox (%): 97 - Physical Exam General: Alert, Cooperative Respiratory: Clear to auscultation bilaterally, Diminished Cardiovascular: No edema, Normal S1 S2 - Studies Medications List Reviewed: Yes Assessment & Plan - Problems (Diagnosis) (1) Acute and chronic respiratory failure Current Visit: Yes Status: Acute Plan: Patient is 73 years of age with a history of COPD admitted with an exacerbation she has hypoxic hypercapnic would probably qualify for noninvasive ventilator at home titrate sat to 90% repeat ABGs and nasal cannula oxygen vital signs are stable and be transferred to the floor patient's white count is normal no further episodes of SVT Qualifiers: Respiratory failure complication: hypoxia and hypercapnia Qualified Code(s) : J96.21 - Acute and chronic respiratory failure with hypoxia; J96.22 - Acute and chronic respiratory failure with hypercapnia Physician Review Additional Text: Impression: Acute on chronic respiratory failure secondary to COPD exacerbation with right sided pneumonia Chronic atrial fibrillation not on chronic anticoagulation Elevated Troponin likely from respiratory failure HTN Tobacco/alcohol abuse GERD Acute renal injury likely dehydration Hyperkalemia Plan: Acute on chronic respiratory failure secondary to COPD exacerbation with right sided pneumonia: Patient continues to improve. Wean off BiPAP, patient on home oxygen. Continue COPD medication and antibiotic therapy-Levaquin. Recheck chest x-ray today. If patient able to ambulate and tolerates food will transition patient to the floor. Await further recommendations from pulmonology. Will pursue skilled placement over the next couple of days. I will turn the service over to Dr. Ellis tomorrow. I will go over the plan of care with her. Chronic atrial fibrillation not on chronic anticoagulation: Sotalol discontinued by Cardiology. Will monitor off medication. If patient redevelops atrial fibrillation will need to consider other anti rhythm medication as recommended by Cardiology. Await further recommendations. Will monitor closely. Elevated Troponin likely from respiratory failure: Continue as above. Likely no need for cardiac intervention at this time. Will monitor cardiac enzymes. HTN: Patient off medication. Will monitor closely. Will add medication if required. Patient offered CARLOZ-inhibitor due to hyperkalemia Tobacco/alcohol abuse: Cessation addressed. May need Nicotine patch. Will continue with folic acid and thiamine. GERD: Continue with Pepcid Acute renal injury likely dehydration: Continue with IV fluids. Encourage oral intake. Hyperkalemia: Recheck potassium improved. Patient received Kayexalate yesterday. Will continue to monitor closely. Patient now off CARLOZ-inhibitor.
--- NOTE | 2018-08-10 08:40 | EKG ---
Test Date: 2018-08-09 Test Time: 08:25:18 Putty And Patch Worker: LUIS MIGUEL MEASUREMENT RESULTS: Intervals: Rate: 168 [place]: QRSD: 134 QT: 310 QTc: 518 [place]: P: [place]: QRS: 237 T: 30 INTERPRETIVE STATEMENTS: Atrial fibrillation with rapid ventricular response Right bundle branch block Abnormal ECG Compared to ECG 08/07/2018 15:27:22 Sinus rhythm no longer present Electronically Signed On 08-10-18 08:39:27 CDT by Tarun Edmonds
[2018-08-10] MEDS: THIAMINE HCL 100 MG TABLET PO SCH (09:30)
[2018-08-10] MEDS: ASPIRIN EC 81 MG TAB PO SCH (09:30)
[2018-08-10] MEDS: FOLIC ACID 1 MG TABLET PO SCH (09:30)
[2018-08-10] MEDS: FAMOTIDINE 20 MG TAB PO SCH ×2 (09:30→21:58)
[2018-08-10] MEDS: predniSONE 20 MG TAB PO SCH ×2 (09:30→21:58)
[2018-08-10] MEDS: GUAIFENESIN 600 MG SA TAB PO SCH ×2 (09:30→21:58)
[2018-08-10] MEDS: ENOXAPARIN 80 MG/0.8 ML SQ SCH ×2 (09:31→21:58)
[2018-08-10] MEDS: CEFUROXIME 250 MG TAB PO SCH ×2 (09:39→21:59)
[2018-08-10 10:20] LABS: Arterial Blood Carboxyhemoglob 1.2 % (0-1.5); Blood Gas Oxyhemoglobin 88.8 % (94-97); Blood O2 Saturation 91.1 % (92-98.5)
--- NOTE | 2018-08-10 13:43 | ECHO ---
HEIGHT: 5 ft 11 in WEIGHT: 162 lb 0 oz DATE OF STUDY: 08/10/[address]: Justo Salazar MD 2-DIMENSIONAL: YES M.MODE: YES DOPPLER: YES COLOR FLOW: YES TDS: YES PORTABLE: YES DEFINITY: NO BUBBLE STUDY: NO DIAGNOSIS: RESPIRATORY FAILURE, SUPRAVENTRICULAR TACHYCARDIA CARDIAC HISTORY: CATHERIZATION: NO SURGERY: NO PROSTHETIC VALVE: NO PACEMAKER: NO MEASUREMENTS (cm) DIASTOLIC (NORMALS) SYSTOLIC (NORMALS) IVSd 1.1 (0.6-1.2) LA Diam (1.9-4.0) LVEF 58% LVIDd 4.1 (3.5-5.7) LVIDs 2.9 (2.0-3.5) %FS 30% LVPWd 1.1 (0.6-1.2) Ao Diam 3.0 (2.0-3.7) 2 DIMENSIONAL ASSESSMENT: RIGHT ATRIUM: DILATED LEFT ATRIUM: DILATED RIGHT VENTRICLE: NORMAL LEFT VENTRICLE: NORMAL TRICUSPID VALVE: NORMAL MITRAL VALVE: MITRAL ANNULAR CALCIFICATION PULMONIC VALVE: NORMAL AORTIC VALVE: SCLEROSIS PERICARDIAL EFFUSION: NONE AORTIC ROOT: NORMAL LEFT VENTRICULAR WALL MOTION: NORMAL. DOPPLER/COLOR FLOW: MILD MITRAL REGURGITATION AND TRICUSPID REGURGITATION. NO AORTIC STENOSIS OR AORTIC REGURGITATION. ESTIMATED RIGHT VENTRICULAR SYSTOLIC PRESSURE 45 MMHG. (MILD PULMONARY HYPERTENSION). COMMENTS: NORMAL LEFT VENTRICULAR EJECTION FRACTION. DILATED LEFT ATRIUM AND RIGHT ATRIUM. MITRAL ANNULAR CALCIFICATION. AORTIC SCLEROSIS WITH NO AORTIC STENOSIS OR AORTIC REGURGITATION. MILD MITRAL REGURGITATION AND TRICUSPID REGURGITATION. MILD PULMONARY HYPERTENSION. NORMAL SINUS RHYTHM. TECHNOLOGIST: CHIQUITA MEJIA
--- NOTE | 2018-08-10 16:01 | PN ---
Date of Progress Note: 08/10/2018 Subjective: Patient is seen and examined. Chart reviewed and case discussed with RN. The patient is hard of hearing. Overall, she has been doing better. The patient does use home oxygen. Daughter at the bedside. Treatment plan explained. All questions answered. Code Status: Full. Medications: List reviewed. Objective: Vital Signs: Temperature 98.2, heart rate 63, blood pressure 126/51 , respirations 20, O2 97% on 2 L via nasal cannula. General: Awake, alert, oriented x3, elderly female, ill-appearing, not in any acute respiratory distress. CV: S1, S2. Peripheral pulses present. Respiratory: Diminished breath sounds. No wheezing or stridor. Gastrointestinal: Abdomen is soft, nontender, nondistended. Positive bowel sounds. Extremities: No clubbing, cyanosis, or edema. NEURO: Cranial nerves 2 through 12 intact grossly. No focal neurological deficit. Speech is normal. Laboratory Data: Sodium 143, potassium 4.5, chloride 106, BUN 51, creatinine 0.8, glucose 112, calcium 8.3, magnesium 1.6. WBC 6.6, H and H 13.4 and 41.9, platelets 280, neutrophils 84%. Blood cultures show no growth to date. Sputum cultures growing out Escherichia coli sensitive to cephalosporins. Assessment And Plan: A 73-year-old female with, 1. Acute on chronic respiratory failure secondary to chronic obstructive pulmonary disease exacerbation. We will try to wean off BiPAP as tolerated. Sputum culture do show E. coli. We will continue antibiotics, has been converted to p.o. Appreciate Pulmonology input. The patient is improving. Currently on nasal cannula. 2. Acute chronic obstructive pulmonary disease exacerbation. We will continue breathing treatments and steroids, switch to p.o. The patient is currently on supplemental oxygen. 3. Right-sided pneumonia. Sputum culture positive for E. coli. We will continue oral antibiotics. Blood cultures are negative. 4. Elevated troponin, likely due to respiratory failure. Cardiology does not recommend any intervention at this time. Appreciate their input. 5. Chronic atrial fibrillation, not on any chronic anticoagulation. The patient has been started on full-dose Lovenox. Sotalol has been resumed by Cardiology. We will continue to monitor. 6. Essential hypertension. Blood pressure stable in the 120 systolic. 7. Gastroesophageal reflux disease without esophagitis. Continue Pepcid. 8. Nicotine dependence with cigarette smoking, continuous. The patient has been counseled. 9. Alcohol abuse. Continue folic acid and thiamine. 10. Acute kidney injury secondary to dehydration, improving. We will continue IV fluids. 11. Hyperkalemia, corrected. We will continue to monitor. 12. Deep venous thrombosis prophylaxis, addressed. Plan: Step down from ICU. /SHANIA Voice ID: [id number] Report ID: [id number] JEB
[2018-08-10] MEDS: BENZONATATE 100 MG CAP PO PRN (21:59)
[2018-08-11 04:26] LABS: Magnesium 1.8 mg/dL (1.8-2.4)
[2018-08-11 04:27] LABS: Absolute Lymphocytes (CBC) 0.7 K/uL (0.7-4.9); Absolute Monocytes 0.3 K/uL (0.1-1.3); Absolute Neutrophil 5.5 K/uL (1.8-8.0); Basophils % 0.3 % (0-1.3); Eosinophils % 0.1 % (0-4.4); Hematocrit 44.8 % (36.0-45.0); Lymphocytes % 11.5 % (15.3-44.8); MPV 7.4 fL (7.6-11.3); Monocytes % 4.2 % (3.3-12.3); RBC Red Blood Cell Count 4.57 M/uL (3.86-4.86)
[2018-08-11] MEDS: SOTALOL HCL 80 MG TAB PO SCH ×2 (05:31→17:02)
[2018-08-11 07:24] VITALS: BMI 22.2
[2018-08-11] MEDS ORDERED: MAGNESIUM SULFATE 1 gm IVPB 1 GM/100 ML BAG IV ONE (09:00)
[2018-08-11] MEDS: ARFORMOTEROL TARTRATE 15 MCG/2 ML VIAL.NEB NEB SCH ×2 (09:13→20:00)
[2018-08-11] MEDS: FAMOTIDINE 20 MG TAB PO SCH ×2 (09:57→21:00)
[2018-08-11] MEDS: predniSONE 20 MG TAB PO SCH ×2 (09:57→20:59)
[2018-08-11] MEDS: FOLIC ACID 1 MG TABLET PO SCH (09:57)
[2018-08-11] MEDS: THIAMINE HCL 100 MG TABLET PO SCH (09:57)
[2018-08-11] MEDS: GUAIFENESIN 600 MG SA TAB PO SCH ×2 (09:57→21:00)
[2018-08-11] MEDS: CEFUROXIME 250 MG TAB PO SCH ×2 (09:57→20:59)
[2018-08-11] MEDS: ENOXAPARIN 80 MG/0.8 ML SQ SCH ×2 (09:57→20:59)
[2018-08-11] MEDS: ASPIRIN EC 81 MG TAB PO SCH (09:59)
--- NOTE | 2018-08-11 12:43 | P.PN ---
Subjective Date of Service: 08/11/18 Primary Care Provider: Dr. James; Cardiology-Dr. Clark Chief Complaint: COPD EXACERBATION Subjective: Improving (Patient is improving doing better wants to go home he has a BiPAP or a noninvasive ventilator at home compliant with the bronchodilator therapy continues to smoke) Review of Systems General: Weakness Respiratory: Cough, Shortness of Breath Physical Examination - Vital Signs Temperature: 97.6 F Blood Pressure: 149/64 Pulse: 63 Respirations: 24 Pulse Ox (%): 90 - Physical Exam General: Alert, Oriented x3 Neck: Supple Respiratory: Expiratory wheezes Cardiovascular: No edema, Regular rate/rhythm - Studies Medications List Reviewed: Yes Assessment & Plan - Problems (Diagnosis) (1) Acute and chronic respiratory failure Current Visit: Yes Status: Resolved Plan: Patient is 73 years of age with a history of COPD admitted with an exacerbation she has hypoxic hypercapnic would probably qualify for noninvasive ventilator at home titrate sat to 90% repeat ABGs and nasal cannula oxygen vital signs are stable and be transferred to the floor patient's white count is normal no further episodes of SVT Qualifiers: Respiratory failure complication: hypoxia and hypercapnia Qualified Code(s) : J96.21 - Acute and chronic respiratory failure with hypoxia; J96.22 - Acute and chronic respiratory failure with hypercapnia (2) COPD exacerbation Current Visit: Yes Status: Acute Plan: Patient is 73 years of age admitted with acute on chronic respiratory failure COPD exacerbation this stable to be discharged home still continues to smoke she is compliant with it inhalers and has a BiPAP at home plan to discharge home on follow-up with me in 2 weeks Physician Review Additional Text: Impression: Acute on chronic respiratory failure secondary to COPD exacerbation with right sided pneumonia Chronic atrial fibrillation not on chronic anticoagulation Elevated Troponin likely from respiratory failure HTN Tobacco/alcohol abuse GERD Acute renal injury likely dehydration Hyperkalemia Plan: Acute on chronic respiratory failure secondary to COPD exacerbation with right sided pneumonia: Patient continues to improve. Wean off BiPAP, patient on home oxygen. Continue COPD medication and antibiotic therapy-Mateo. Recheck chest x-ray today. If patient able to ambulate and tolerates food will transition patient to the floor. Await further recommendations from pulmonology. Will pursue skilled placement over the next couple of days. I will turn the service over to Dr. Ellis tomorrow. I will go over the plan of care with her. Chronic atrial fibrillation not on chronic anticoagulation: Sotalol discontinued by Cardiology. Will monitor off medication. If patient redevelops atrial fibrillation will need to consider other anti rhythm medication as recommended by Cardiology. Await further recommendations. Will monitor closely. Elevated Troponin likely from respiratory failure: Continue as above. Likely no need for cardiac intervention at this time. Will monitor cardiac enzymes. HTN: Patient off medication. Will monitor closely. Will add medication if required. Patient offered CARLOZ-inhibitor due to hyperkalemia Tobacco/alcohol abuse: Cessation addressed. May need Nicotine patch. Will continue with folic acid and thiamine. GERD: Continue with Pepcid Acute renal injury likely dehydration: Continue with IV fluids. Encourage oral intake. Hyperkalemia: Recheck potassium improved. Patient received Kayexalate yesterday. Will continue to monitor closely. Patient now off CARLOZ-inhibitor.
--- NOTE | 2018-08-11 21:41 | P.PN ---
Subjective Date of Service: 08/11/18 Primary Care Provider: Dr. James; Cardiology-Dr. Clark Chief Complaint: COPD EXACERBATION Subjective: No C/O voiced, Improving Patient seen and examined at bedside. No family at bedside. Reports improvement. Off of BiPAP Review of Systems 10-point ROS is otherwise unremarkable Physical Examination - Vital Signs Temperature: 98.0 F Blood Pressure: 128/50 Pulse: 61 Respirations: 16 Pulse Ox (%): 92 - Physical Exam General: Alert, In no apparent distress HEENT: Atraumatic, PERRLA, EOMI Neck: Supple, JVD not distended Respiratory: Clear to auscultation bilaterally, Normal air movement Cardiovascular: Regular rate/rhythm, Normal S1 S2 Gastrointestinal: Normal bowel sounds, No tenderness Musculoskeletal: No tenderness Integumentary: No rashes Neurological: Normal speech, Normal tone, Normal affect Lymphatics: No axilla or inguinal lymphadenopathy - Studies Medications List Reviewed: Yes Assessment And Plan - Plan A 73-year-old female with, 1. Acute on chronic respiratory failure secondary to chronic obstructive pulmonary disease exacerbation. Weaned off BiPAP, now on home oxygen of 2 L. Sputum culture do show E. coli. We will continue antibiotics, has been converted to p.o. Appreciate Pulmonology input. The patient is improving. 2. Acute chronic obstructive pulmonary disease exacerbation. We will continue breathing treatments and steroids, switch to p.o. The patient is currently on supplemental oxygen. 3. Right-sided pneumonia. Sputum culture positive for E. coli. We will continue oral antibiotics. Blood cultures are negative. 4. Elevated troponin, likely due to respiratory failure. Cardiology does not recommend any intervention at this time. Appreciate their input. 5. Chronic atrial fibrillation, not on any chronic anticoagulation. The patient has been started on full-dose Lovenox. Sotalol has been discontinued by Cardiology. We will continue to monitor. 6. Essential hypertension. Blood pressure stable in the 120 systolic. 7. Gastroesophageal reflux disease without esophagitis. Continue Pepcid. 8. Nicotine dependence with cigarette smoking, continuous. The patient has been counseled., 9. Alcohol abuse. Continue folic acid and thiamine. 10. Acute kidney injury secondary to dehydration, improving. We will continue IV fluids. 11. Hyperkalemia, corrected. We will continue to monitor. 12. Deep venous thrombosis prophylaxis, addressed. Plan: Continue monitoring, pending symptomatic improvement.
[2018-08-12 05:15] LABS: Magnesium 1.7 mg/dL (1.8-2.4); Potassium 5.1 mmol/L (3.5-5.1)
[2018-08-12] MEDS: SOTALOL HCL 80 MG TAB PO SCH (05:16)
[2018-08-12] MEDS ORDERED: MAGNESIUM SULFATE 1 gm IVPB 1 GM/100 ML BAG IV ONE (05:57)
[2018-08-12] MEDS: ARFORMOTEROL TARTRATE 15 MCG/2 ML VIAL.NEB NEB SCH (08:28)
[2018-08-12] MEDS: FOLIC ACID 1 MG TABLET PO SCH (08:50)
[2018-08-12] MEDS: ENOXAPARIN 80 MG/0.8 ML SQ SCH (08:50)
[2018-08-12] MEDS: predniSONE 20 MG TAB PO SCH (08:50)
[2018-08-12] MEDS: FAMOTIDINE 20 MG TAB PO SCH (08:50)
[2018-08-12] MEDS: GUAIFENESIN 600 MG SA TAB PO SCH (08:50)
[2018-08-12] MEDS: ASPIRIN EC 81 MG TAB PO SCH (08:50)
[2018-08-12] MEDS: THIAMINE HCL 100 MG TABLET PO SCH (08:50)
[2018-08-12] MEDS: CEFUROXIME 250 MG TAB PO SCH (08:51)
[2018-08-12 11:17] VITALS: O2SAT 90
[2018-08-12 14:21] VITALS: BP 177/71; TEMP 97
== END 2018-08-12 16:54 | disposition home or self-care (01) | DRG 177 ==
LOC: ER 15:04 → ERHOLD 16:46 → 3RD-ICU 08-08 02:17 → 4TH 08-10 13:00
PROVIDERS: ADMIT Family Medicine; ATTEND Family Medicine
PROC: 5A09457 Assistance with Respiratory Ventilation, 24-96 Consecutive Hours, Continuous Positive Airway Pressure (ICD-10-PCS; principal; 2018-08-07)
DX: J15.5 Pneumonia due to Escherichia coli (principal); J96.21 Acute and chronic respiratory failure with hypoxia; J96.22 Acute and chronic respiratory failure with hypercapnia; J44.1 Chronic obstructive pulmonary disease with (acute) exacerbation; N17.9 Acute kidney failure, unspecified; J44.0 Chronic obstructive pulmonary disease with (acute) lower respiratory infection; R79.89 Other specified abnormal findings of blood chemistry; I48.2 Chronic atrial fibrillation; K21.9 Gastro-esophageal reflux disease without esophagitis; F17.210 Nicotine dependence, cigarettes, uncomplicated; F10.10 Alcohol abuse, uncomplicated; E86.0 Dehydration; E87.5 Hyperkalemia; I10 Essential (primary) hypertension
CPT/HCPCS: 36415; 71045; 71275; 80048; 80061; 80076; 81003; 82550; 82553; 82805; 83605; 83690; 83735; 84132; 84145; 84439; 84443; 84484; 85025; 85610; 85730; 87040; 87070; 87077; 87186; 87205; 87804; 93005; 93306; 94640; 94660; 94760; 96365; 97116; 97162; 99285; J1650; J2920; J3475; J7030; J7512; J7605; Q9967

== ENCOUNTER 2018-09-03 07:30 | Day surgery (SDC) | payer OTHER, BC ==
--- OUTSIDE RECORDS SUMMARY | 2018-09-03 07:32 | XMS REPORT ---
:1945 [facility] Address [address] [place] [address] Care Team Providers Name Role Phone Unavailable Unavailable Unavailable Problems This patient has no known problems. Allergies, Adverse Reactions, Alerts This patient has no known allergies or adverse reactions. Medications This patient has no known medications.
[2018-09-03] MEDS ORDERED: Ringers Lactate 1,000 ML IV ONE (08:29)
[2018-09-03] MEDS ORDERED: NS 0.9% VIAL 0 ML ONE (09:13)
[2018-09-03] MEDS ORDERED: LIDOCAINE 1% MPF 5 ML VIAL ONE (09:13)
[2018-09-03] MEDS ORDERED: Phenylephrine HCl 10 MG/ML 1 ML VIAL ONE (09:13)
[2018-09-03] MEDS ORDERED: PROPOFOL 200 MG/20 ML VIAL IV ONE (09:13)
[2018-09-03 10:55] VITALS: BP 147/49; O2SAT 96
[2018-09-03 10:58] VITALS: TEMP 98.3
--- NOTE | 2018-09-03 21:38 | OP ---
Surgeon: Sean Krueger MD Procedure Performed: Esophagogastroduodenoscopy. Performing Physician: Sean Krueger MD Indication For Procedure: Epigastric abdominal pain. Plan For Anesthesia: Monitored anesthesia care. Complexity: High due to patient's comorbidities and significant COPD, requiring continuous oxygen. Technique: After obtaining informed consent from the patient, explaining risks and complications whi ch include but are not limited to bleeding, infection, perforation, and anesthesia complication, the patient was placed in left lateral position and sedation was given. From then on, the scope was adva nced to the mouth and carefully guided up till the jejunum. Subsequently, the scope was gradually wi thdrawn while carefully examining the mucosa. After the completion of examination, scope and equipme nt were withdrawn and procedure terminated in a safe manner. Findings: Esophagus: No gross lesion seen in the upper and mid esophagus. In the distal esophagus, a small hiatal hernia was seen. The Z-line was irregular. Biopsies taken. The GE junction was deb und 37-38 cm. Stomach: There was a small remnant stomach due to the gastric bypass. Some scarring and sutures wer e visible. However, there was no visible ulceration. The anastomosis appeared to be healthy. Mild patchy erythema was seen in the small remnant stomach. Biopsies taken. Jejunum: The jejunum was examined, appeared normal. Scope was extended up to 40-50 cm. Small bowel biopsies were taken. Complications: None. Tolerance To Anesthesia: Excellent. Postoperative Diagnoses: Hiatal hernia, post gastric surgery, gastritis. No other significant patho logy. Plan: 1.Await pathology results. 2.Continue PPI. 3.Due to essentially no significant finding on the upper, we will order a CT of the abdomen and pelv is with contrast for further evaluation. Also, fibroid adhesive disease may be playing a role in her condition. US/MODL Voice ID: [id number] Report ID: [id number]
== END 2018-09-03 10:15 | disposition home or self-care (01) ==
LOC: OR 07:30
PROVIDERS: ATTEND Internal Medicine Gastroenterology
PROC: 0DB88ZX Excision of Small Intestine, Via Natural or Artificial Opening Endoscopic, Diagnostic (ICD-10-PCS; 2018-09-03)
PROC: 0DB68ZX Excision of Stomach, Via Natural or Artificial Opening Endoscopic, Diagnostic (ICD-10-PCS; 2018-09-03)
PROC: 0DB58ZX Excision of Esophagus, Via Natural or Artificial Opening Endoscopic, Diagnostic (ICD-10-PCS; principal; 2018-09-03 08:45)
DX: K29.50 Unspecified chronic gastritis without bleeding (principal); K44.9 Diaphragmatic hernia without obstruction or gangrene; Z98.84 Bariatric surgery status; D50.9 Iron deficiency anemia, unspecified; I11.0 Hypertensive heart disease with heart failure; I50.9 Heart failure, unspecified; J44.9 Chronic obstructive pulmonary disease, unspecified; K21.9 Gastro-esophageal reflux disease without esophagitis; F17.210 Nicotine dependence, cigarettes, uncomplicated; Z99.81 Dependence on supplemental oxygen
CPT/HCPCS: 43239; 88312; 88305; J2704; J2370

== ENCOUNTER 2018-10-05 06:11 | Inpatient (IN) | payer OTHER, BC ==
--- OUTSIDE RECORDS SUMMARY | 2018-10-05 06:13 | XMS REPORT ---
:1945 [facility] Address [address] [place] [address] Care Team Providers Name Role Phone Unavailable Unavailable Unavailable Problems This patient has no known problems. Allergies, Adverse Reactions, Alerts This patient has no known allergies or adverse reactions. Medications This patient has no known medications.
[2018-10-05 06:48] LABS: Absolute Lymphocytes (CBC) 1.2 K/uL (0.7-4.9); Absolute Monocytes 0.9 K/uL (0.1-1.3); Absolute Neutrophil 4.6 K/uL (1.8-8.0); Basophils % 1.1 % (0-1.3); Eosinophils % 1.7 % (0-4.4); Hematocrit 45.6 % (36.0-45.0); MPV 7.8 fL (7.6-11.3); Monocytes % 12.9 % (3.3-12.3); Protime INR 0.99; RBC Red Blood Cell Count 4.82 M/uL (3.86-4.86)
[2018-10-05] MEDS ORDERED: IPRATROPIUM BROM 0.5MG/2.5ML ONE (06:50)
[2018-10-05] MEDS ORDERED: ALBUTEROL 2.5 MG/3 ML NEB SOL ONE (06:50)
[2018-10-05 07:02] LABS: Albumin 3.1 g/dL (3.4-5.0); Bilirubin Direct 0.3 mg/dL (0-0.2); Bilirubin Total 0.6 mg/dL (0.2-1.0); Magnesium 1.6 mg/dL (1.8-2.4); Potassium 4.7 mmol/L (3.5-5.1); Protein, Total 7.2 g/dL (6.4-8.2); Troponin (Emerg Dept Use Only) 0.11 ng/mL (0.0-0.045)
[2018-10-05] MEDS ORDERED: Magnesium Sulfate 2gm IVPB 2 G/50 ML BAG IV ONE (07:57)
--- NOTE | 2018-10-05 07:57 | ER ---
Nurse's Notes [facility] Name: Denys Antoine Age: 73 yrs Sex: Female : 1945 Arrival Date: 10/05/2018 Time: 06:20 Bed 6 Private MD: Sachin James E Diagnosis: Chronic obstructive pulmonary disease with (acute) exacerbation;Elevated troponin;Chest pain, unspecified;Hypomagnesemia;Pneumonia, unspecified organism Presentation: 10/05 06:26 Presenting complaint: Patient states: she has been feeling weak and fatigued worse than bb usual and she is having difficulty breathing, pt states she also had chest pain which lasted about a minute but is not feeling any chest pain now. Transition of care: patient was not received from another setting of care. Onset of symptoms is unknown. Risk Assessment: Do you want to hurt yourself or someone else? Patient reports no desire to harm self or others. Initial Sepsis Screen: Does the patient meet any 2 criteria? No. Patient's initial sepsis screen is negative. Does the patient have a suspected source of infection? No. Patient's initial sepsis screen is negative. Care prior to arrival: None. 06:26 Method Of Arrival: Wheelchair bb 06:26 Acuity: HAO 2 bb 06:31 Note O2 applied via NC at 4 Lpm sats now 92%. bb Triage Assessment: 06:41 Respiratory: Onset: The symptoms/episode began/occurred. ak1 06:47 General: Appears in no apparent distress. Behavior is calm, cooperative, appropriate ak1 for age. Pain: Complains of pain in right leg and right ankle, chest. Respiratory: Reports shortness of breath at rest on exertion the patient has mild shortness of breath. Historical: - Allergies: 06:29 No Known Allergies; bb - Home Meds: 06:29 Unable to obtain [Active]; bb - PMHx: 06:29 "heart flutter"; Asthma; COPD; bb - PSHx: 06:29 Tubal ligation; Tonsillectomy; Cholecystectomy; Gastric Bypass; toe surgery; perforated bb ulcer repair; - Immunization history:: Adult Immunizations up to date. - Social history:: Smoking status: Patient uses tobacco products, smokes 1.5 packs per day, Patient uses alcohol, on a daily basis. patient/guardian reports chronic longstanding heavy alcohol consumption. - Ebola Screening: : No symptoms or risks identified at this time. Screenin:41 Abuse screen: Denies threats or abuse. Denies injuries from another. Nutritional ak1 screening: No deficits noted. Tuberculosis screening: No symptoms or risk factors identified. Fall Risk IV access (20 points). Ambulatory Aid- Crutches/Cane/Walker (15 pts). Gait- Weak (10 pts.). Assessment: 06:41 General: Appears in no apparent distress. Behavior is calm, cooperative, pt ambulates ak1 with a walker and cane for assistance. . Pain: Complains of pain in right ankle, chest Pain began chest pain for "just a minuet" last night. right outer ankle pain "since last hospital visit". Neuro: Level of Consciousness is awake, alert, obeys commands, Oriented to person, place, time, situation, Sheet [employer]or are equal bilaterally Moves all extremities. Gait is unsteady, Speech is normal. Cardiovascular: Reports chest pain, shortness of breath, since chest pain for "just a minuet" last night. pt c/o generalized weakness increased yesterday. pt uses oxygen at 3L via NC at home at night. Heart tones S1 S2 present Capillary refill is > 3 seconds Patient's skin is warm and dry. Respiratory: Airway is patent Respiratory effort is unlabored, Breath sounds with wheezes the patient has mild shortness of breath. GI: No deficits noted. : No signs and/or symptoms were reported regarding the genitourinary system. EENT: No signs and/or symptoms were reported regarding the EENT system. Derm: No signs and/or symptoms reported regarding the dermatologic system. Musculoskeletal: Reports generalized weakness. 07:00 Reassessment: RECD REPORT FROM SALOME LYLE. 73YO WF P/W CP/SOB, GEN WEAKNESS, AND NOW LEG bp PAIN. PT CURRENTLY IN U/S. U/S RESULTS PENDING. 07:00 Cardiovascular: Rhythm is sinus rhythm. bp 07:02 Reassessment: report given to Seb Lyle RN and Paola Santana RN. ak1 07:19 Reassessment: PT RETURNED FROM U/S, RESULTS PENDING FOR DISPO. bp 07:45 Reassessment: PER PROVIDER, ROOM AIR SAT OBTAINED, NOTABLY HYPOXIC AT 78%. bp 09:00 Reassessment: DR HARRIS AT B/S FOR ADMIT. PER PROVIDER, PNEUMONIA NOTED ON CHEST. bp 10:00 Reassessment: ADMIT IN PROCESS, PT RESTING QUIETLY. bp 10:37 Reassessment: REPORT TO NEETU LYLE, ADMIT ON HOLD FOR ROOM MAINTENANCE 223. bp 11:45 Reassessment: BED REASSIGNED, PT MIGUEL. bp Vital Signs: 06:29 BP 137 / 67; Pulse 66; Resp 22 S; Temp 97.7(O); Pulse Ox 72% on R/A; Weight 74.84 kg bb (R); Height 6 ft. 0 in. (182.88 cm) (R); Pain 0/10; 06:31 Pulse Ox 92% on 4 lpm NC; bb 07:26 BP 121 / 47; Pulse 68; Resp 23; Pulse Ox 91% on 3 lpm NC; bp 07:45 BP 119 / 56; Pulse 71; Resp 25; Pulse Ox 78% on R/A; bp 09:00 BP 104 / 74; Pulse 69; Resp 23; Pulse Ox 91% on 3 lpm NC; bp 10:00 BP 103 / 53; Pulse 66; Resp 24; Temp 98; Pulse Ox 93% on 3 lpm NC; bp 11:46 BP 118 / 50; Pulse 68; Resp 26; Temp 98; Pulse Ox 94% ; bp 06:29 Body Mass Index 22.38 (74.84 kg, 182.88 cm) bb ED Course: 06:20 Patient arrived in ED. es 06:21 Sachin James MD is Private Physician. es 06:28 Triage completed. bb 06:29 [facility] Fer[facility] kb 06:29 Romero Miller MD is Attending Physician. kb 06:29 Arm band placed on Patient placed in an exam room, on a stretcher, on oxygen, on bb cardiac rehabilitation specialist, on pulse oximetry. EKG completed in triage. Results shown to MD. Family accompanied patient. 06:32 EKG done, by ED staff, reviewed by Romero Miller MD. aa1 06:34 Initial lab(s) drawn, by ED staff, sent to lab. Inserted saline lock: 20 gauge in left aa1 forearm, using aseptic technique. Blood collected. 06:39 Salome Galicia, RN is Primary Nurse. ak1 06:41 Patient has correct armband on for positive identification. Placed in gown. Bed in low ak1 position. Call light in reach. Side rails up X2. court monitor on. Pulse ox on. NIBP on. Door closed. Warm blanket given. 06:41 X-ray(s) taken. ak1 06:44 Patient taken to ultrasound. taylor 07:05 XRAY Chest (1 view) In Process Unspecified. EDMS 07:08 US Extremity Venous W Compression Alexander In Process Unspecified. EDMS 07:56 Hayden Harris DO is Hospitalizing Provider. kb 10:24 No provider procedures requiring assistance completed. Patient admitted, IV remains in bp place. Administered Medications: 06:40 Drug: AtroVENT Aerosol 0.5 mg Route: Inhalation; ak1 06:41 Drug: Albuterol 1.25 mg Route: Inhalation; ak1 07:47 Drug: Magnesium Sulfate 2 grams Route: IVPB; Infused Over: 2 hrs; Site: left forearm; aa5 08:56 Follow up: IV Status: Completed infusion bp 09:34 Drug: Rocephin 1 grams Route: IV; Rate: calculated rate; Site: left forearm; bp 10:06 Follow up: IV Status: Completed infusion; IV Intake: 20ml bp 10:00 Drug: Zithromax 500 mg {Note: RECD FROM PHARMACY AT 0950.} Route: IVPB; Infused Over: 1 bp hrs; Site: left forearm; 10:40 Follow up: IV Status: Infusion continued upon admission bp Intake: 10:06 IV: 20ml; Total: 20ml. bp Outcome: 07:56 Decision to Hospitalize by Provider. kb 10:36 Admitted to Med/surg accompanied by tech, family with patient, via wheelchair, room bp 223, with oxygen, with chart, Report called to NEETU LYLE 10:36 Condition: stable 10:36 Instructed on the need for admit. 11:47 Patient left the ED. bp Signatures: Dispatcher [employer] RAULITOMS Araceli Ferrera, ZACARIAS HUBBARD-Li Irizarry RN RN aa1 Arianna Davis Brenda RN RN bb Paola George RN RN aa5 Salome Galicia RN RN ak1 Lee Chaves jd, Brian RN RN bp Corrections: (The following items were deleted from the chart) 07:47 07:47 Magnesium Sulfate 2 grams IVPB in left wrist over 2 hrs aa5 aa5 10:42 10:37 Reassessment: REPORT TO NEETU LYLE bp bp
--- NOTE | 2018-10-05 07:57 | EDPHYS ---
Physician Documentation [facility] Name: Denys Antoine Age: 73 yrs Sex: Female : 1945 Arrival Date: 10/05/2018 Time: 06:20 Bed 6 Private MD: Sachin James E ED Physician Romero Miller HPI: 10/05 06:30 This 73 yrs old Female presents to ER via Wheelchair with complaints of kb Breathing Difficulty, Chest Pain. 06:30 The patient has shortness of breath and the patient has a history of COPD. Onset: The kb symptoms/episode began/occurred 1 month(s) ago, and became worse. Duration: The symptoms are continuous, and are steadily getting worse. The patient's shortness of breath is aggravated by nothing, is alleviated by nothing. Associated signs and symptoms: Pertinent positives: chest pain, productive cough. Severity of symptoms: At their worst the symptoms were moderate in the emergency department the symptoms are unchanged. The patient has experienced similar episodes in the past. The patient has not recently seen a physician. Pt reports weakness, fatigue and shortness of breath that has been progressively getting worse over the last month. Reports chronic cough. Had chest pain for about 1 minute, one hour boat captain. Denies chest pain now. Also reports right lower extremity pain that started prior to her last admission on 08/08/18. States she smokes about 1.5 packs of cigarettes a day and had between 6 and 10 drinks a day. Pt reports she goes to [facility] in the afternoons, has 3-4 drinks, goes home for dinner and a nap, then returns to [place] [id number] to play pool and has about 3-5 more drinks daily.. Historical: - Allergies: 06:29 No Known Allergies; bb - Home Meds: 06:29 Unable to obtain [Active]; bb - PMHx: 06:29 "heart flutter"; Asthma; COPD; bb - PSHx: 06:29 Tubal ligation; Tonsillectomy; Cholecystectomy; Gastric Bypass; toe surgery; perforated bb ulcer repair; - Immunization history:: Adult Immunizations up to date. - Social history:: Smoking status: Patient uses tobacco products, smokes 1.5 packs per day, Patient uses alcohol, on a daily basis. patient/guardian reports chronic longstanding heavy alcohol consumption. - Ebola Screening: : No symptoms or risks identified at this time. ROS: 06:30 ENT: Negative for injury, pain, and discharge, Abdomen/GI: Negative for abdominal pain, kb nausea, vomiting, diarrhea, and constipation, Back: Negative for injury and pain, : Negative for injury, bleeding, discharge, and swelling, Skin: Negative for injury, rash, and discoloration. 06:30 Constitutional: Positive for fatigue, Negative for body aches, chills, fever, malaise, poor PO intake, weight loss. 06:30 Cardiovascular: Positive for chest pain, Negative for edema, orthopnea, palpitations, paroxysmal nocturnal dyspnea. 06:30 Respiratory: Positive for cough, "sounds productive", shortness of breath. 06:30 Neuro: Positive for weakness. 06:42 MS/extremity: Positive for pain, of the right ankle. kb Exam: 06:30 Constitutional: This is a well developed, well nourished patient who is awake, alert, kb and in no acute distress. Head/Face: Normocephalic, atraumatic. Chest/axilla: Normal chest wall appearance and motion. Nontender with no deformity. No lesions are appreciated. Abdomen/GI: Soft, non-tender, with normal bowel sounds. No distension or tympany. No guarding or rebound. No evidence of tenderness throughout. Skin: Warm, dry with normal turgor. Normal color with no rashes, no lesions, and no evidence of cellulitis. MS/ Extremity: Pulses equal, no cyanosis. Neurovascular intact. Full, normal range of motion. Neuro: Awake and alert, GCS 15, oriented to person, place, time, and situation. Cranial nerves II-XII grossly intact. Motor strength 5/5 in all extremities. Sensory grossly intact. Cerebellar exam normal. Normal gait. 06:30 Cardiovascular: Edema: 1+ edema to level of left ankle and right ankle, pedal edema, that is mild. 06:30 ECG was reviewed by the Attending Physician. 06:30 Respiratory: the patient does not display signs of respiratory distress, Respirations: normal, Breath sounds: wheezing: expiratory that is mild, is scattered. Vital Signs: 06:29 BP 137 / 67; Pulse 66; Resp 22 S; Temp 97.7(O); Pulse Ox 72% on R/A; Weight 74.84 kg bb (R); Height 6 ft. 0 in. (182.88 cm) (R); Pain 0/10; 06:31 Pulse Ox 92% on 4 lpm NC; bb 07:26 BP 121 / 47; Pulse 68; Resp 23; Pulse Ox 91% on 3 lpm NC; bp 07:45 BP 119 / 56; Pulse 71; Resp 25; Pulse Ox 78% on R/A; bp 09:00 BP 104 / 74; Pulse 69; Resp 23; Pulse Ox 91% on 3 lpm NC; bp 10:00 BP 103 / 53; Pulse 66; Resp 24; Temp 98; Pulse Ox 93% on 3 lpm NC; bp 11:46 BP 118 / 50; Pulse 68; Resp 26; Temp 98; Pulse Ox 94% ; bp 06:29 Body Mass Index 22.38 (74.84 kg, 182.88 cm) bb MDM: 06:29 Patient medically screened. kb 06:41 Data reviewed: vital signs, nurses notes. Data interpreted: Pulse oximetry: on room air kb is 70 %. Interpretation: hypoxia. Plan: O2 by NC applied. Pt O2 sat 70% on room air. Pt reports she wears 3L of oxygen at home as needed. Denies shortness of breath at this time. 92% on 4L of oxygen via NC. . 07:55 Counseling: I had a detailed discussion with the patient and/or guardian regarding: the kb historical points, exam findings, and any diagnostic results supporting the discharge/admit diagnosis, lab results, radiology results, the need for further work-up and treatment in the hospital. Physician consultation: Hayden Salgado DO was contacted at 07:55, regarding admission, to the telemetry unit. and will see patient in ED, shortly. 07:58 ED course: After breathing treatment, pt O2 93% on 3L, 82% on room air. kb 10/05 06:30 Order name: LFT's kb 10/05 06:30 Order name: Basic Metabolic Panel kb 10/05 06:30 Order name: CBC with Diff kb 10/05 06:30 Order name: Magnesium kb 10/05 06:30 Order name: NT PRO-BNP kb 10/05 06:30 Order name: PT-INR kb 10/05 06:30 Order name: Troponin (emerg Dept Use Only) kb 10/05 06:48 Order name: Protime (+INR); Complete Time: 07:04 EDMS 10/05 06:49 Order name: CBC with Automated Diff; Complete Time: 07:04 EDMS 10/05 07:03 Order name: Basic Metabolic Panel; Complete Time: 07:04 EDMS 10/05 07:03 Order name: Liver (Hepatic) Function; Complete Time: 07:04 EDMS 10/05 07:03 Order name: Troponin (Emerg Dept Use Only); Complete Time: 07:04 EDMS 10/05 07:03 Order name: NT PRO-BNP; Complete Time: 07:04 EDMS 10/05 07:03 Order name: Magnesium; Complete Time: 07:04 EDMS 10/05 06:30 Order name: XRAY Chest (1 view); Complete Time: 08:34 kb 10/05 06:30 Order name: EKG; Complete Time: 06:31 kb 10/05 06:30 Order name: Cardiac monitoring; Complete Time: 06:36 kb 10/05 06:30 Order name: EKG - Nurse/Tech; Complete Time: 06:36 kb 10/05 06:30 Order name: IV Saline Lock; Complete Time: 06:36 kb 10/05 06:30 Order name: Labs collected and sent; Complete Time: 06:36 kb 10/05 06:30 Order name: O2 Per Protocol; Complete Time: 06:36 kb 10/05 06:43 Order name: US Extremity Venous W Compression Alexander; Complete Time: 08:12 kb 10/05 08:35 Order name: Blood Culture Adult (2) kb 10/05 08:35 Order name: Procalcitonin; Complete Time: 10:23 kb 10/05 08:35 Order name: Lactate; Complete Time: 09:49 kb 10/05 06:30 Order name: O2 Sat Monitoring; Complete Time: 06:36 kb EC:30 Rate is 60 beats/min. Rhythm is regular, Sinus Rhythm. GA interval is normal at 156 kb msec. QRS interval is normal at 132 msec. QT interval is normal at 458 msec. Administered Medications: 06:40 Drug: AtroVENT Aerosol 0.5 mg Route: Inhalation; ak1 06:41 Drug: Albuterol 1.25 mg Route: Inhalation; ak1 07:47 Drug: Magnesium Sulfate 2 grams Route: IVPB; Infused Over: 2 hrs; Site: left forearm; aa5 08:56 Follow up: IV Status: Completed infusion bp 09:34 Drug: Rocephin 1 grams Route: IV; Rate: calculated rate; Site: left forearm; bp 10:06 Follow up: IV Status: Completed infusion; IV Intake: 20ml bp 10:00 Drug: Zithromax 500 mg {Note: RECD FROM PHARMACY AT 0950.} Route: IVPB; Infused Over: 1 bp hrs; Site: left forearm; 10:40 Follow up: IV Status: Infusion continued upon admission bp Disposition: 10/05/18 07:56 Hospitalization ordered by Hayden Salgado for Observation. Preliminary diagnosis are Chronic obstructive pulmonary disease with (acute) exacerbation, Elevated troponin, Chest pain, unspecified, Hypomagnesemia, Pneumonia, unspecified organism. - Bed requested for Telemetry/MedSurg (observation). - Status is Observation. bp - Condition is Stable. - Problem is new. - Symptoms are unchanged. UTI on Admission? No Addendum: 10/10/2018 06:02 Co-signature as Attending Physician, Romero Miller MD. r n Signatures: Dispatcher [employer] EDMS Araceli Ferrera, AUTOMOTIVE MAINTENANCE TECHNICIAN-C AUTOMOTIVE MAINTENANCE TECHNICIAN-CkJennifer Ware RN RN bb Romero Miller MD MD rn Calderon, Audri, RN RN aa5 Salome Galicia RN RN ak1 Samreen Vaughn, VALDO LYLE df Seb Piper RN RN bp Corrections: (The following items were deleted from the chart) 10/05 06:42 06:30 ENT: Negative for injury, pain, and discharge, Abdomen/GI: Negative for abdominal kb pain, nausea, vomiting, diarrhea, and constipation, Back: Negative for injury and pain, : Negative for injury, bleeding, discharge, and swelling, MS/Extremity: Negative for injury and deformity, Skin: Negative for injury, rash, and discoloration, kb 07:56 07:56 Hospitalization Ordered by Hayden Salgado DO for Observation. Preliminary kb diagnosis is Chronic obstructive pulmonary disease with (acute) exacerbation; Elevated troponin; Chest pain, unspecified. Bed requested for Telemetry/MedSurg (observation). Status is Observation. Condition is Stable. Problem is new. Symptoms are unchanged. UTI on Admission? No. ct 08:35 07:56 10/05/2018 07:56 Hospitalization Ordered by Hayden Salgado DO for Observation. kb Preliminary diagnosis is Chronic obstructive pulmonary disease with (acute) exacerbation; Elevated troponin; Chest pain, unspecified; Hypomagnesemia. Bed requested for Telemetry/MedSurg (observation). Status is Observation. Condition is Stable. Problem is new. Symptoms are unchanged. UTI on Admission? No. kb 10:19 08:35 10/05/2018 07:56 Hospitalization Ordered by Hayden Salgado DO for Observation. df Preliminary diagnosis is Chronic obstructive pulmonary disease with (acute) exacerbation; Elevated troponin; Chest pain, unspecified; Hypomagnesemia; Pneumonia, unspecified organism. Bed requested for Telemetry/MedSurg (observation). Status is Observation. Condition is Stable. Problem is new. Symptoms are unchanged. UTI on Admission? No. kb 11:47 10:19 10/05/2018 07:56 Hospitalization Ordered by Hayden Salgado DO for Observation. bp Preliminary diagnosis is Chronic obstructive pulmonary disease with (acute) exacerbation; Elevated troponin; Chest pain, unspecified; Hypomagnesemia; Pneumonia, unspecified organism. Bed requested for Telemetry/MedSurg (observation). Status is Observation. Condition is Stable. Problem is new. Symptoms are unchanged. UTI on Admission? No. df
--- NOTE | 2018-10-05 08:10 | RAD REPORT ---
EXAM DESCRIPTION: US - Extrem Venous W Compress Alexander - 10/05/2018 7:13 am CLINICAL HISTORY: Pain;Swelling Bilateral leg edema and swelling. COMPARISON: Upper Lower Extrem Art Multi dated 09/03/2018 TECHNIQUE: Real-time sonographic interrogation of the left and right lower extremity deep venous sys tems was performed. FINDINGS: Normal compressibility, flow augmentation, phasic flow and spontaneous flow is identified in both the left and right lower extremity deep venous systems. IMPRESSION: No sonographic evidence of left or right lower extremity deep venous thrombosis.
--- NOTE | 2018-10-05 08:33 | RAD REPORT ---
EXAM DESCRIPTION: RAD - Chest Single View - 10/05/2018 6:46 am CLINICAL HISTORY: COUGH Chest pain. COMPARISON: Chest Single View dated 08/09/2018; Chest Single View dated 08/08/2018; Chest Single View d ated 08/07/2018; CHEST SINGLE VIEW dated 03/17/2014 FINDINGS: Portable technique limits examination quality. Emphysematous changes are present throughout the lungs with moderate improvement in right basilar ronaldo g aeration. Small area opacity is present in the left lung base, appearing new since the comparative study. The heart is moderately prominent. No displaced fractures. IMPRESSION: Small left lung base pulmonary opacity, new since 08/09/2018, likely pneumonia or aspira tion related.
[2018-10-05] MEDS ORDERED: CEFTRIAXONE/SWI 1gm 1 GM/10 ML SYR ONE (09:34)
--- NOTE | 2018-10-05 09:42 | P.HP ---
Certification for Inpatient Patient admitted to: Observation With expected LOS: <2 Midnights Patient will require the following post-hospital care: None Practitioner: I am a practitioner with admitting privileges, knowledge of patient current condition, hospital course, and medical plan of care. Services: Services provided to patient in accordance with Admission requirements found in Title 42 Section 412.3 of the Code of Federal Regulations Patient History Date of Service: 10/05/18 Primary Care Provider: Dr. James Reason for admission: Fatigue, SOB History of Present Illness: 73 yo CF presented to the ER with shortness of breath, fatigue. Patient with underlying COPD, tobacco, atrial fibrillation and alcohol abuse. Patient presented with increasing shortness of breath and fatigue over the last day. Patient uses home oxygen for COPD. The patient smokes heavily and drinks heavily as well. She denied any fever, chills. Patient recently hospitalized in July for acute respiratory failure secondary to COPD exacerbation, right lower lobe pneumonia and found to have atrial fibrillation. Patient was seen by pulmonology and Cardiology at that time. The patient was evaluated in the emergency room. Room-air saturations were at 70%. White count 6.8, hemoglobin 14. Sodium 135, potassium 4.7, BUN of 37, creatinine 0.8 with a GFR 65. Glucose 97. Troponin 0.11 with a BNP of 11,000. Chest x-ray showed left lower lobe pneumonia. Venous Doppler the lower extremity unremarkable. Patient was admitted for further treatment. When I saw the patient ER, she appeared stable. Currently on nasal cannula. Patient admits smoking heavily. She also drinks regularly. Family at bedside. Family reports that she is taking her medication. She does not use her oxygen all the time. Allergies No Known Allergies Allergy (Verified 09/03/18 08:47) Home medications list reviewed: Yes Home Medications: Fluticasone/Salmeterol [Advair 250/50 Diskus*] 1 puff IH BID 08/17/12 Albuterol Inhaler [Ventolin Inhaler*] 1 puff IH Q6H 08/08/18 Ipratropium/Albuterol Sulfate [Combivent Respimat 20-100 Mcg] 2 puff IH Q6H PRN 08/08/18 Montelukast [Singulair*] 10 mg PO DAILY 08/08/18 Omeprazole [Prilosec] 40 mg PO DAILY 08/08/18 Tiotropium [Spiriva Handihaler*] 2 puff IH DAILY 08/08/18 Arformoterol Tartrate [Brovana] 15 mcg NEB BIDRESP #1 vial.neb 08/12/18 Sotalol HCl [Betapace*] 40 mg PO BID #30 tab 08/12/18 - Past Medical/Surgical History Diabetic: No -: COPD -: Tobacco abuse -: HTN -: A. fib, not on chronic anti coagulation therapy -: GERD -: Alcohol abuse -: cholecystectomy -: gastric bypass -: carotid endardarectomy -: tonsillectomy -: tubal ligation Psychosocial/ Personal History: Lives at home - Family History Family History: Reviewed- Non-Contributory - Social History Smoking Status: Heavy Tobacco smoker (>10 cigarettes/day) Counseled patient to stop smoking for: less than 10 minutes Smoking therapy provided: Yes Patient receptive to therapy: No Alcohol use: Yes CD- Drugs: No Caffeine use: Yes Place of Residence: Home Review of Systems General: Weakness, As per HPI Eyes: Unremarkable ENT: Unremarkable Respiratory: Cough, Shortness of Breath, SOB with Excertion, As per HPI Cardiovascular: As per HPI Gastrointestinal: Unremarkable Genitourinary: Unremarkable Musculoskeletal: Unremarkable Integumentary: Unremarkable Neurological: Unremarkable Lymphatics: Unremarkable Physical Examination - Physical Exam General: Alert, In no apparent distress, Oriented x3, Cooperative HEENT: Atraumatic, Normocephalic, PERRLA, Mucous membr. moist/pink Neck: Supple, No Thyromegaly Respiratory: Crackles/rales (Crackles to the left base), Expiratory wheezes ( Bilateral), Inspiratory wheezes Cardiovascular: Regular rate/rhythm Gastrointestinal: Normal bowel sounds, Soft and benign, Non-distended, No tenderness, No masses, No rebound, No guarding Musculoskeletal: No erythema, No tenderness, No warmth Integumentary: No tenderness/swelling, No erythema, No warmth, No cyanosis Neurological: Normal speech, Normal strength at 5/5 x4 extr, Normal tone, Normal affect - Studies Laboratory Data (last 24 hrs) 10/05/18 06:34: PT 11.7, INR 0.99 10/05/18 06:34: WBC 6.8, Hgb 14.7, Hct 45.6 H, Plt Count 315 10/05/18 06:34: Sodium 135 L, Potassium 4.7, BUN 37 H, Creatinine 0.85, Glucose 97, Magnesium 1.6 L, Total Bilirubin 0.6, AST 12 L, ALT 13, Alkaline Phosphatase 103 Assessment and Plan - Plan Impression: Fatigue, shortness of breath secondary to COPD exacerbation with left lower lobe pneumonia with prior history of right sided pneumonia, on chronic oxygen Chronic atrial fibrillation not on chronic anti coagulation therapy with noted elevated troponin Pulmonary hypertension Tobacco abuse Alcohol abuse Plan: Fatigue, shortness of breath secondary to COPD exacerbation with left lower lobe pneumonia with prior history of right sided pneumonia, on chronic oxygen: Patient will be admitted for observation. White count unremarkable. Will check pro calcitonin and lactic acid. Will start Rocephin and Zithromax. Patient with previous history of right-sided pneumonia with sputum culture positive for E coli. Will obtain blood and sputum culture at this time. Anticipate improvement with antibiotics and fluids. Will consult pulmonology to further assess. Will continue with COPD medication. Will maintain sats above 90%. Patient uses home oxygen. Will provide medication for cough and congestion. Encourage alcohol and tobacco cessation. Anticipate discharge in the next 24 hr. I will turn the service over to Dr. Mathis tomorrow. I will go over the plan of care with her. Chronic atrial fibrillation not on chronic anti coagulation therapy with noted elevated troponin: Patient started on sotalol on the last hospitalization- July 2018. Will confirm home medication and restart. Patient not on chronic anti coagulation therapy likely due to risk of bleeding and noncompliance. Patient with slight elevation in troponin. Will consult cardiology for further recommendation. Patient with multiple risk factors. Patient may require cardiac evaluation, likely inpatient versus outpatient workup Pulmonary hypertension: Will obtain home medication and restart. GERD: Will continue with medication. Patient with recent EGD. Tobacco abuse: Tobacco cessation addressed in detail. Alcohol abuse: Alcohol cessation addressed in detail. Discharge Plan: Home Plan to discharge in: 24 Hours - Advance Directives Does patient have a Living Will: Yes Does patient have a Durable POA for Healthcare: No - Code Status/Comfort Care Code Status Assessed: Yes (Patient is full code.) Time Spent Managing Pts Care (In Minutes): 55
[2018-10-05] MEDS ORDERED: AZITHROMYCIN IV 500 MG in NA CHLORIDE 0.9% 250 ML IVPB ONE (10:00)
[2018-10-05 12:29] VITALS: BMI 22.0
[2018-10-05] MEDS ORDERED: LORazepam 2 MG/ML VIAL IV PRN (12:53)
[2018-10-05] MEDS ORDERED: BENZONATATE 100 MG CAP PO PRN (12:53)
[2018-10-05] MEDS ORDERED: ACETAMINOPHEN 500 MG TAB PO PRN (12:53)
[2018-10-05] MEDS ORDERED: ONDANSETRON 4 MG/2 ML VIAL IV PRN (12:53)
[2018-10-05 14:04] LABS: CKMB Creatine Kinase MB 1.4 ng/mL (0.3-3.6); Troponin I 0.09 ng/mL (0.0-0.045)
--- NOTE | 2018-10-05 15:24 | EKG ---
Test Date: 2018-10-05 Test Time: 06:30:03 Smoking Pipe Coater: GENIE MEASUREMENT RESULTS: Intervals: Rate: 60 NC: 156 QRSD: 132 QT: 458 QTc: 458 [place]: P: 63 NC: 156 QRS: -80 T: 61 INTERPRETIVE STATEMENTS: Sinus rhythm with premature atrial complexes with aberrant conduction Right bundle branch block Left axis Abnormal ECG Compared to ECG 08/09/2018 08:25:18 Atrial premature complex(es) now present Atrial fibrillation no longer present Electronically Signed On 10-05-18 15:23:54 CDT by Tarun Edmonds
[2018-10-05] MEDS: NA CHLORIDE 0.9% 1,000 ML IV SCH (15:42)
[2018-10-05] MEDS: SOTALOL HCL 80 MG TAB PO SCH (18:54)
[2018-10-05] MEDS: ARFORMOTEROL TARTRATE 15 MCG/2 ML VIAL.NEB NEB SCH (20:00)
[2018-10-05] MEDS: MUPIROCIN 2% OINT 22GM TUBE TOP SCH (20:37)
[2018-10-05] MEDS: FAMOTIDINE 20 MG TAB PO SCH (20:38)
[2018-10-05] MEDS: ATORVASTATIN 40 MG TAB PO SCH (20:38)
[2018-10-05] MEDS: GUAIFENESIN 600 MG SA TAB PO SCH (20:38)
--- NOTE | 2018-10-05 21:05 | CON ---
Mrs. Antoine is 73. She came to the emergency room because of atrial fibrillation. She has had atria l fibrillation for many years. She takes Betapace 40 mg twice a day to suppress it. She is now in s inus rhythm again. In the emergency room, she was in atrial fibrillation with rapid ventricular resp onse. In the emergency room, she was treated with Atrovent, albuterol, Rocephin, and Zithromax, some IV fluids. I do not see that she was given any particular drug to help revert the rhythm to sinus. There may have been something done, but I cannot find it in the records. Her first vital signs when she was hooked up to the monitor showed a heart rate of 66. Her EKG showed atrial fib, but apparent ly a few minutes later, it had resolved. The patient has a history of alcohol and tobacco abuse. Monica guillory has not been given any anticoagulant because of compliance issues. She does not show up for visits , comes in when she has run out of medications, comes to the hospital when she is sick. She continue s to be a heavy cigarette smoker, heavy alcohol user. Physical Examination: Vital signs: Six feet tall, 162 pounds. General: The patient appears to be older than stated age, not in distress. Lungs: Reveal a few wheezes. Heart: Reveals a regular rate and rhythm. No murmur or gallop. Abdomen: Soft. Extremities: Mild edema. There is discoloration of the feet. They are kind of reddish-purplish col ored. Distal pulses are diminished. There are no ulcers or sores on her feet. Her chest x-ray shows a left lung base pneumonia. Impression: Mrs. Antoine has transient atrial fibrillation. We should continue her sotalol 40 mg twi ce a day and observe her rhythm. I do not recommend resuming or initiating anticoagulation. MONICA/SHANIA Voice ID: [id number] Report ID: [id number]
[2018-10-05 21:18] LABS: CKMB Creatine Kinase MB 1.6 ng/mL (0.3-3.6); Troponin I 0.09 ng/mL (0.0-0.045)
[2018-10-06] MEDS: NA CHLORIDE 0.9% 1,000 ML IV SCH (03:20)
[2018-10-06] MEDS: SOTALOL HCL 80 MG TAB PO SCH ×2 (05:19→17:02)
[2018-10-06 06:00] LABS: Absolute Lymphocytes (CBC) 1.1 K/uL (0.7-4.9); Absolute Monocytes 0.5 K/uL (0.1-1.3); Absolute Neutrophil 3.5 K/uL (1.8-8.0); Basophils % 0.8 % (0-1.3); Eosinophils % 2.7 % (0-4.4); Hematocrit 43.1 % (36.0-45.0); MPV 7.7 fL (7.6-11.3); Monocytes % 10.3 % (3.3-12.3); RBC Red Blood Cell Count 4.52 M/uL (3.86-4.86)
[2018-10-06 06:14] LABS: Magnesium 1.9 mg/dL (1.8-2.4); Potassium 4.7 mmol/L (3.5-5.1)
--- NOTE | 2018-10-06 07:38 | RAD REPORT ---
EXAM DESCRIPTION: RAD - Chest Pa And Lat (2 Views) - 10/06/2018 7:22 am CLINICAL HISTORY: Pneumonia, COPD COMPARISON: October 05 TECHNIQUE: PA and lateral views of the chest were obtained. FINDINGS: The lungs are extensively fibrotic as a baseline. Apical scarring or pleural thickening no harjeet and stable. Patchy opacification in the left base not substantially different. There may be some minimal clearing of alveolar opacities. Right base opacification has worsened since prior imaging. No failure or volume overload. Heart size is normal and central vasculature is within normal limits . No pleural effusion or pneumothorax seen. No acute bony finding noted. No aortic abnormality. IMPRESSION: Worsening right base pneumonia findings.
[2018-10-06] MEDS: FAMOTIDINE 20 MG TAB PO SCH ×2 (08:05→21:26)
[2018-10-06] MEDS: THIAMINE HCL 100 MG TABLET PO SCH (08:05)
[2018-10-06] MEDS: ENOXAPARIN 40 MG/0.4 ML SQ SCH (08:05)
[2018-10-06] MEDS: FOLIC ACID 1 MG TABLET PO SCH (08:05)
[2018-10-06] MEDS: GUAIFENESIN 600 MG SA TAB PO SCH ×2 (08:05→21:26)
[2018-10-06] MEDS: ASPIRIN EC 81 MG TAB PO SCH (08:05)
[2018-10-06] MEDS: CEFTRIAXONE/SWI 1gm 1 GM/10 ML SYR IV SCH (08:06)
[2018-10-06] MEDS: MUPIROCIN 2% OINT 22GM TUBE TOP SCH ×2 (08:06→21:27)
[2018-10-06] MEDS: ALBUTEROL 2.5 MG/3 ML NEB SOL NEB PRN ×2 (08:20→20:38)
[2018-10-06] MEDS: ARFORMOTEROL TARTRATE 15 MCG/2 ML VIAL.NEB NEB SCH ×2 (08:20→20:38)
[2018-10-06] MEDS: IPRATROPIUM BROM 0.5MG/2.5ML NEB PRN ×2 (08:20→20:38)
[2018-10-06] MEDS ORDERED: AZITHROMYCIN IV 500 MG in NA CHLORIDE 0.9% 250 ML IVPB SCH (09:00)
--- NOTE | 2018-10-06 10:14 | RAD REPORT ---
EXAM DESCRIPTION: CT - Thorax Wo Con - 10/06/2018 9:52 am CLINICAL HISTORY: Pneumonia, volume overload COMPARISON: Chest exam October 06, CT chest August 09 TECHNIQUE: Axial 5 mm thick images of the chest were obtained without IV contrast. All CT scans are performed using dose optimization technique as appropriate and may include automated exposure control or mA/KV adjustment according to patient size. FINDINGS: No new or progressive left upper lobe finding since the July CT study. Airspace opacifica tion is present in the posterior gutter on the left where there is also a small left pleural effusion . A few air bronchograms are present. This pattern is strongly favored to be pneumonia over failure o r volume overload. Patient has a small right pleural effusion as well. Reticulonodular opacities are present in the lateral lower aspect of the right upper lobe in a pattern similar to the July study. There is more prominent subpleural interstitial and alveolar opacification in the posterolateral righ t middle lobe. Right lower lobe interstitial and reticulonodular opacities are present. These are not substantially different from the prior examination. No pneumothorax. No pleural based mass. No abnormal mediastinal or hilar masses or lymphadenopathy seen. No gross aortic or pulmonary artery finding suspected. Assessment is limited in the absence of IV contrast. No pericardial thickening or effusion. No chest wall mass or abnormal axillary lymphadenopathy. IMPRESSION: Pneumonia changes are present in the posterior left lung base where there is also small left pleural effusion. Small right pleural effusion is present. Reticulonodular and scattered alveolar opacities are present in the mid and lower right lung field favored to be pneumonia along with chronic interstitial lung d isease. Significant failure or volume overload component is not suspected.
--- NOTE | 2018-10-06 11:36 | P.CNS ---
Date of Consult: 10/06/18 Primary Care Provider: Dr. 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 Allergies No Known Allergies Allergy (Verified 09/03/18 08:47) Home Medications: Fluticasone/Salmeterol [Advair 250/50 Diskus*] 1 puff IH BID 08/17/12 Ipratropium/Albuterol Sulfate [Combivent Respimat 20-100 Mcg] 2 puff IH Q6H PRN 08/08/18 Montelukast [Singulair*] 10 mg PO DAILY 08/08/18 Omeprazole [Prilosec] 20 mg PO DAILY 08/08/18 Tiotropium [Spiriva Handihaler*] 2 puff IH DAILY 08/08/18 Sotalol HCl [Betapace*] 40 mg PO BID #30 tab 08/12/18 Albuterol Neb [Proventil 0.083% Neb Soln] 2.5 mg IH QID PRN 10/05/18 Furosemide [Lasix] 40 mg PO DAILY 10/05/18 Lisinopril/Hydrochlorothiazide [Lisinopril-Hctz 20-12.5 mg Tab] 1 each PO DAILY 10/05/18 - Past Medical/Surgical History Diabetic: No -: COPD -: Tobacco abuse -: HTN -: A. fib, not on chronic anti coagulation therapy -: GERD -: Alcohol abuse -: cholecystectomy -: gastric bypass -: carotid endardarectomy -: tonsillectomy -: tubal ligation Psychosocial/ Personal History: Lives at home - Social History Smoking Status: Current every day smoker, Unknown if ever smoked Alcohol use: Yes CD- Drugs: No Caffeine use: Yes Place of Residence: Home Review of Systems General: Weakness Respiratory: Cough, Shortness of Breath Physical Examination Temp Pulse Resp BP Pulse Ox 97.1 F 67 19 172/71 H 90 L 10/06/18 08:00 10/06/18 08:00 10/06/18 08:00 10/06/18 08:00 10/06/18 08:00 General: Alert, Moderate distress Respiratory: Clear to auscultation bilaterally, Diminished, Expiratory wheezes Cardiovascular: No edema, Regular rate/rhythm, Normal S1 S2 Gastrointestinal: Normal bowel sounds, Soft and benign - Problems (1) COPD exacerbation Current Visit: No Status: Acute Plan: Patient is 73 years poor historian admitted complaining of feeling weak the progressively worse heavy smoker there is no evidence of sepsis she does have an infiltrate in the left lower lobe small pleural effusion on the right side CT scan chest x-rays reviewed oxygenation satisfactory blood pressure elevated no evidence of DVT cultures are so far negative sputums pending Dc Zithromax added p.o. prednisone 2D echo with Doppler patient is on Advair and Spiriva at home in addition to sotalol patient presented to the emergency room with AFib prior echo show normal left ventricular ejection fraction
[2018-10-06] MEDS: predniSONE 20 MG TAB PO SCH ×2 (12:23→21:26)
[2018-10-06 12:27] LABS: Arterial Blood Carboxyhemoglob 2.2 % (0-1.5); Blood Gas Oxyhemoglobin 72.4 % (94-97); Blood O2 Saturation 74.9 % (92-98.5)
[2018-10-06 12:37] LABS: Thyroid Stimulating Hormone 0.86 uIU/mL (0.360-3.740)
--- NOTE | 2018-10-06 15:18 | P.PN ---
Subjective Date of Service: 10/06/18 Primary Care Provider: Dr. James Chief Complaint: Fatigue, SOB Patient seen and examined at bedside with RN. Chart reviewed. Does appear to be lethargic this a.m. however saturating well on 3 L of nasal cannula. Denies having any complaints overnight. Review of Systems 10-point ROS is otherwise unremarkable Physical Examination - Vital Signs Temperature: 97.1 F Blood Pressure: 118/60 Pulse: 62 Respirations: 19 Pulse Ox (%): 94 - Physical Exam General: In no apparent distress, Mild distress, Other (Lethargic) HEENT: Atraumatic Neck: Supple, JVD not distended Respiratory: Normal air movement, Expiratory wheezes, Inspiratory wheezes, Rhonchi/gurgles Cardiovascular: Normal S1 S2, Irregular heart rate/rhythm Gastrointestinal: Normal bowel sounds, No tenderness Musculoskeletal: No tenderness Integumentary: No rashes Neurological: Normal speech, Normal tone, Normal affect Lymphatics: No axilla or inguinal lymphadenopathy - Studies Medications List Reviewed: Yes Assessment And Plan - Current Problems (Diagnosis) (1) Acute and chronic respiratory failure Current Visit: No Status: Resolved Plan: Acute on chronic respiratory failure most likely secondary to hypercapnia secondary to COPD exacerbation secondary to pneumonia -currently patient placed on BiPAP. Will wean as tolerated -pulmonology consulted on the case. Appreciated recommendations at this time Qualifiers: Respiratory failure complication: hypoxia and hypercapnia Qualified Code(s) : J96.21 - Acute and chronic respiratory failure with hypoxia; J96.22 - Acute and chronic respiratory failure with hypercapnia (2) PNA (pneumonia) Current Visit: Yes Status: Acute Plan: Left lower lobe pneumonia. Failed outpatient therapy. -CTs chest concerning for left lower pneumonia that is getting worse from prior studies -though pro calcitonin WBC negative patient has been on chronic antibiotics -will continue with IV Zithromax and Rocephin at this time -will follow up with sputum culture and blood cultures at this time as well Qualifiers: Pneumonia type: due to unspecified organism Laterality: left Lung location: lower lobe of lung Qualified Code(s): J18.1 - Lobar pneumonia, unspecified organism (3) COPD exacerbation Current Visit: No Status: Chronic Plan: COPD exacerbation most likely secondary to pneumonia -duo nebs, BiPAP at this time. Will wean to oxygen nasal cannula. Patient does use home oxygenation at 3 L (4) Afib Current Visit: Yes Status: Chronic Plan: Chronic atrial fibrillation initially with RVR now with sinus rhythm -cardiology consulted. Appreciated recommendations at this time -Betapace for rate and rhythm control -no anti coagulation with past history of GI bleeding and high risk for fall. Qualifiers: Atrial fibrillation type: persistent Qualified Code(s): I48.1 - Persistent atrial fibrillation - Plan Pending clinical improvement at this time. Will go ahead and continue with IV suffers. Will await sputum and blood culture at this time. Discharge Plan: Home Plan to discharge in: 48 Hours - Code Status/Comfort Care Code Status Assessed: Yes Critical Care: No
[2018-10-06 16:35] LABS: Urine Appearance CLEAR; Urine Bilirubin NEGATIVE (NEG); Urine Blood NEGATIVE (NEG); Urine Color YELLOW; Urine Glucose NEGATIVE (NEG); Urine Protein TRACE (NEG); Urine pH 5.5 (5.0-7.0)
[2018-10-06 16:36] LABS: Urine Microscopic Reflex ORDER UMIC
[2018-10-06 16:44] LABS: Urine Bacteria <20 /HPF (<20); Urine Culture Reflex Order NOT NEEDED; Urine RBC NONE SEEN /HPF (NONE SEEN)
--- NOTE | 2018-10-06 19:15 | PN ---
Date of Progress Note: 10/06/2018 The patient was admitted by Dr. Salgado on 10/05/2018, was seen by Dr. Edmonds. She has paroxysmal atr ial fibrillation, history of tobacco use, alcohol use. She was admitted with a pneumonia. She has m ajor issues with compliance, and she should not be on anticoagulants. Sotalol 40 b.i.d. was continue d. Today, she is feeling better. She is breathing better. She has a normal rhythm. We will contin ue her present regimen. We will sign off her case. MEY/SHANIA Voice ID: [id number] Report ID: [id number]
[2018-10-06] MEDS: ATORVASTATIN 40 MG TAB PO SCH (21:26)
[2018-10-07] MEDS: SOTALOL HCL 80 MG TAB PO SCH ×2 (05:24→18:10)
--- NOTE | 2018-10-07 08:29 | ECHO ---
HEIGHT: 6 ft 0 in WEIGHT: 162 lb 9.6 oz DATE OF STUDY: 10/06/[address]: Justo Salazar MD 2-DIMENSIONAL: YES M.MODE: YES DOPPLER: YES COLOR FLOW: YES TDS: YES PORTABLE: NO DEFINITY: NO BUBBLE STUDY: NO DIAGNOSIS: POSSIBLE CHF CARDIAC HISTORY: CATHERIZATION: SURGERY: PROSTHETIC VALVE: PACEMAKER: MEASUREMENTS (cm) DIASTOLIC (NORMALS) SYSTOLIC (NORMALS) IVSd 0.9 (0.6-1.2) LA Diam (1.9-4.0) LVEF 74% LVIDd 5.3 (3.5-5.7) LVIDs 3.0 (2.0-3.5) %FS 44% LVPWd 1.0 (0.6-1.2) Ao Diam 3.7 (2.0-3.7) 2 DIMENSIONAL ASSESSMENT: RIGHT ATRIUM: NORMAL LEFT ATRIUM: NORMAL RIGHT VENTRICLE: NORMAL LEFT VENTRICLE: NORMAL TRICUSPID VALVE: NORMAL MITRAL VALVE: NORMAL PULMONIC VALVE: NORMAL AORTIC VALVE: SCLEROSIS PERICARDIAL EFFUSION: NONE AORTIC ROOT: NORMAL LEFT VENTRICULAR WALL MOTION: NORMAL DOPPLER/COLOR FLOW: MILD TRICUSPID REGURGITATION. MILD PULMONARY HYPERTENSION. RIGHT VENTRICULAR SYSTOLIC PRESSURE 39mmHg. COMMENTS: NORMAL LEFT VENTRICULAR SIZE AND FUNCTION. NORMAL LEFT ATRIAL SIZE. NO THROMBUS. MILD PULMONARY HYPERTENSION. AORTIC SCLEROSIS WITH NO STENOSIS. TECHNOLOGIST: Nataly HOWARD
[2018-10-07] MEDS: ARFORMOTEROL TARTRATE 15 MCG/2 ML VIAL.NEB NEB SCH ×2 (08:30→20:00)
[2018-10-07] MEDS: IPRATROPIUM BROM 0.5MG/2.5ML NEB PRN ×2 (08:30→13:50)
[2018-10-07] MEDS: ALBUTEROL 2.5 MG/3 ML NEB SOL NEB PRN ×2 (08:30→13:50)
[2018-10-07] MEDS ORDERED: HOME MED 1 EA UNK (Lisinopril/Hydrochlorothiazide [Lisinopril-Hctz 20-12.5 Mg Tab] 1 EACH) PO SCH (09:00)
[2018-10-07] MEDS: FUROSEMIDE 40 MG TABLET PO SCH (09:11)
[2018-10-07] MEDS: LISINOPRIL 20 MG TAB PO SCH (09:11)
[2018-10-07] MEDS: CEFTRIAXONE/SWI 1gm 1 GM/10 ML SYR IV SCH (09:11)
[2018-10-07] MEDS: FAMOTIDINE 20 MG TAB PO SCH ×2 (09:12→20:08)
[2018-10-07] MEDS: hydroCHLOROthiazide 12.5 MG CAP PO SCH (09:12)
[2018-10-07] MEDS: FOLIC ACID 1 MG TABLET PO SCH (09:12)
[2018-10-07] MEDS: THIAMINE HCL 100 MG TABLET PO SCH (09:12)
[2018-10-07] MEDS: predniSONE 20 MG TAB PO SCH ×2 (09:14→20:08)
[2018-10-07] MEDS: GUAIFENESIN 600 MG SA TAB PO SCH ×2 (09:15→20:08)
[2018-10-07] MEDS: MUPIROCIN 2% OINT 22GM TUBE TOP SCH ×2 (09:15→20:09)
[2018-10-07] MEDS: ENOXAPARIN 40 MG/0.4 ML SQ SCH (09:15)
[2018-10-07] MEDS: ASPIRIN EC 81 MG TAB PO SCH ×2 (09:16→10:06)
--- NOTE | 2018-10-07 11:13 | P.PN ---
Subjective Date of Service: 10/07/18 Primary Care Provider: Dr. James Chief Complaint: Fatigue, SOB Patient seen and examined at bedside with RN. Chart reviewed. Discussed with pulmonology at this time. Patient this morning states that she feels much better than before. Currently getting nebulizing treatment. Sitting at the edge of the bed. Still requiring BiPAP support denies having any chest pain, fever chills nausea vomiting overnight Review of Systems 10-point ROS is otherwise unremarkable Physical Examination - Vital Signs Temperature: 97.5 F Blood Pressure: 143/63 Pulse: 60 Respirations: 18 Pulse Ox (%): 93 - Physical Exam General: Alert, Oriented x3, Mild distress Neck: JVD distended Respiratory: Normal air movement, Expiratory wheezes, Inspiratory wheezes, Rhonchi/gurgles Cardiovascular: Regular rate/rhythm, Normal S1 S2 Gastrointestinal: Normal bowel sounds, No tenderness Musculoskeletal: No tenderness Integumentary: No rashes Neurological: Normal speech, Normal tone, Normal affect Lymphatics: No axilla or inguinal lymphadenopathy - Studies Medications List Reviewed: Yes Assessment And Plan - Current Problems (Diagnosis) (1) Acute and chronic respiratory failure Current Visit: No Status: Acute Plan: Acute on chronic respiratory failure most likely secondary to hypercapnia secondary to COPD exacerbation secondary to pneumonia -currently patient placed on BiPAP. Will wean as tolerated to oxygen -pulmonology consulted on the case. Appreciated recommendations at this time Qualifiers: Respiratory failure complication: hypoxia and hypercapnia Qualified Code(s) : J96.21 - Acute and chronic respiratory failure with hypoxia; J96.22 - Acute and chronic respiratory failure with hypercapnia (2) PNA (pneumonia) Current Visit: Yes Status: Acute Plan: Left lower lobe pneumonia. Failed outpatient therapy. -CTs chest concerning for left lower pneumonia that is getting worse from prior studies -Pro calcitonin WBC negative, patient however has been on chronic antibiotics -Zithromax Dc by pulmonology. Will continue with Rocephin at this time -will follow up with sputum culture and blood cultures at this time as well. Blood cultures negative thus far Qualifiers: Pneumonia type: due to unspecified organism Laterality: left Lung location: lower lobe of lung Qualified Code(s): J18.1 - Lobar pneumonia, unspecified organism (3) COPD exacerbation Current Visit: No Status: Chronic Plan: COPD exacerbation most likely secondary to pneumonia -duo nebs, BiPAP at this time. Will wean to oxygen nasal cannula. Patient does use home oxygenation at 3 L (4) Afib Current Visit: Yes Status: Chronic Plan: Chronic atrial fibrillation initially with RVR now with sinus rhythm -cardiology consulted. Appreciated recommendations at this time -Betapace for rate and rhythm control -no anti coagulation with past history of GI bleeding and high risk for fall. Qualifiers: Atrial fibrillation type: persistent Qualified Code(s): I48.1 - Persistent atrial fibrillation - Plan Pending clinical improvement at this time. Will go ahead and continue with BiPAP at this time. Will wean as tolerated. Will continue with IV Rocephin. Will await sputum and blood culture at this time. Discharge Plan: Home Plan to discharge in: 48 Hours - Code Status/Comfort Care Code Status Assessed: Yes Critical Care: No
--- NOTE | 2018-10-07 16:45 | P.PN ---
Subjective Date of Service: 10/07/18 Primary Care Provider: Dr. James Chief Complaint: Chronic respiratory failure Subjective: Improving (Patient is improving still feeling weak ambulating hypoxic hypercapnic respiratory failure) Review of Systems General: Weakness Respiratory: Shortness of Breath Physical Examination - Vital Signs Temperature: 97.3 F Blood Pressure: 155/63 Pulse: 55 Respirations: 20 Pulse Ox (%): 94 - Physical Exam General: Alert, In no apparent distress, Oriented x3 Neck: Supple Respiratory: Diminished, Expiratory wheezes Cardiovascular: No edema, Normal pulses - Studies Microbiology Data (last 24 hrs): 10/05/18 10:20 Sputum Gram Stain - Final Medications List Reviewed: Yes Assessment & Plan - Problems (Diagnosis) (1) COPD exacerbation Current Visit: No Status: Chronic Plan: Patient has hypoxic hypercapnic respiratory failure secondary to COPD patient has normal LV can be discharged home refuses BiPAP on prednisone 10 mg twice a day continue with her bronchodilators and oxygen cultures are all negative REM stain is pending Discharge Plan: Home Plan to discharge in: 24 Hours
[2018-10-07] MEDS: ATORVASTATIN 40 MG TAB PO SCH (20:08)
[2018-10-08] MEDS: SOTALOL HCL 80 MG TAB PO SCH (05:55)
[2018-10-08] MEDS: ARFORMOTEROL TARTRATE 15 MCG/2 ML VIAL.NEB NEB SCH (07:35)
[2018-10-08] MEDS: predniSONE 20 MG TAB PO SCH (09:00)
[2018-10-08] MEDS: GUAIFENESIN 600 MG SA TAB PO SCH (09:00)
[2018-10-08] MEDS: hydroCHLOROthiazide 12.5 MG CAP PO SCH (09:00)
[2018-10-08] MEDS: CEFTRIAXONE/SWI 1gm 1 GM/10 ML SYR IV SCH (09:00)
[2018-10-08] MEDS: FAMOTIDINE 20 MG TAB PO SCH (09:00)
[2018-10-08] MEDS: LISINOPRIL 20 MG TAB PO SCH (09:01)
[2018-10-08] MEDS: FUROSEMIDE 40 MG TABLET PO SCH (09:01)
[2018-10-08] MEDS: FOLIC ACID 1 MG TABLET PO SCH (09:01)
[2018-10-08] MEDS: THIAMINE HCL 100 MG TABLET PO SCH (09:01)
[2018-10-08] MEDS: MUPIROCIN 2% OINT 22GM TUBE TOP SCH (09:02)
[2018-10-08] MEDS: ENOXAPARIN 40 MG/0.4 ML SQ SCH (09:02)
[2018-10-08 10:42] VITALS: O2SAT 94
[2018-10-08 13:22] VITALS: BP 144/66; TEMP 97.7
--- NOTE | 2018-10-08 13:59 | P.DS ---
Admission Date: 10/07/18 Discharge Date: 10/08/18 Primary Care Provider: Dr. James Disposition: ROUTINE DISCHARGE Discharge Condition: FAIR Reason for Admission: Chronic respiratory failure Consultations: Pulmonology - Problems (1) Acute and chronic respiratory failure Current Visit: No Status: Acute Qualifiers: Respiratory failure complication: hypoxia and hypercapnia Qualified Code(s) : J96.21 - Acute and chronic respiratory failure with hypoxia; J96.22 - Acute and chronic respiratory failure with hypercapnia (2) PNA (pneumonia) Current Visit: Yes Status: Acute Qualifiers: Pneumonia type: due to Escherichia coli Laterality: left Lung location: lower lobe of lung Qualified Code(s): J15.5 - Pneumonia due to Escherichia coli (3) COPD exacerbation Current Visit: No Status: Chronic (4) Afib Current Visit: Yes Status: Chronic Qualifiers: Atrial fibrillation type: persistent Qualified Code(s): I48.1 - Persistent atrial fibrillation Brief History of Present Illness: 73 yo CF presented to the ER with shortness of breath, fatigue. Patient with underlying COPD, tobacco, atrial fibrillation and alcohol abuse. Patient presented with increasing shortness of breath and fatigue over the last day. Patient uses home oxygen for COPD. The patient smokes heavily and drinks heavily as well. She denied any fever, chills. Patient recently hospitalized in July for acute respiratory failure secondary to COPD exacerbation, right lower lobe pneumonia and found to have atrial fibrillation. Patient was seen by pulmonology and Cardiology at that time. The patient was evaluated in the emergency room. Room-air saturations were at 70%. White count 6.8, hemoglobin 14. Sodium 135, potassium 4.7, BUN of 37, creatinine 0.8 with a GFR 65. Glucose 97. Troponin 0.11 with a BNP of 11,000. Chest x-ray showed left lower lobe pneumonia. Venous Doppler the lower extremity unremarkable. Patient was admitted for further treatment. When I saw the patient ER, she appeared stable. Currently on nasal cannula. Patient admits smoking heavily. She also drinks regularly. Family at bedside. Family reports that she is taking her medication. She does not use her oxygen all the time. Hospital Course: Overall during the hospital stay patient remained stable. Patient was initially admitted to the hospital after she presented to the ER having shortness of breath. Patient was found to have acute respiratory failure most likely secondary to COPD exacerbation which was most likely secondary to pneumonia. Sputum culture and blood cultures were collected. Patient was initially started on IV Rocephin and azithromycin. Pulmonology was consulted. Patient was also placed on BiPAP at that time. Patient was refusing BiPAP is on an off however was educated extensively on the need of BiPAP and thus decided the improvement in her symptoms and was weaned off of BiPAP to oxygen successfully. Pulmonology recommended the patient can be discontinued on antibiotics however decision was made to continue antibiotics given her sputum culture which was positive for Gram negative rods and previous cultures that were positive for E. coli in the sputum. At that time antibiotics were switched from IV to oral doxycycline. Patient was monitored here in the hospital closely had nebulizing treatments along with steroid as well. Patient does use home oxygenation at home and was successfully weaned off to a acceptable level that she uses at home. At that time pulmonology recommended that patient can then be discharged home safely and have followup appointment with him in about 1-2 weeks post discharge. Patient is high risk for readmission due to poor compliance with medication and also patient continues to smoke despite several smoking cessation education. Patient also is very noncompliant with her oxygen at home and refuses to get a noninvasive positive pressure ventilator which she might require in the future. Patient educated extensively regarding the disease process and the poor prognosis along with the need to comply with medication and not smoking. Patient demonstrate understanding at this time however does not appear to be there receptive to the education provided. Patient at that time was asked to follow up with primary care provider as well in about 1-2 weeks post discharge. Patient was discharged home under stable condition once she was on 3 L nasal cannula was able to ambulate and tolerate her diet well. Patient was given a prescription for doxycycline and was asked to follow up with cultures with pulmonology at her next visit. Vital Signs/Physical Exam: Temp Pulse Resp BP Pulse Ox 97.7 F 52 20 144/66 H 92 10/08/18 12:00 10/08/18 12:00 10/08/18 12:00 10/08/18 12:00 10/08/18 12:00 General: Alert, Oriented x2 HEENT: Atraumatic, PERRLA, EOMI Neck: Supple, JVD not distended Respiratory: Normal air movement, Expiratory wheezes, Inspiratory wheezes Cardiovascular: Regular rate/rhythm, Normal S1 S2 Gastrointestinal: Normal bowel sounds, No tenderness Musculoskeletal: No tenderness Integumentary: No rashes Neurological: Normal speech, Normal tone, Normal affect Lymphatics: No axilla or inguinal lymphadenopathy Laboratory Data at Discharge: WBC 5.3 K/uL (4.3-10.9) D 10/06/18 05:29 Hgb 13.8 g/dL (12.0-15.0) 10/06/18 05:29 Hct 43.1 % (36.0-45.0) 10/06/18 05:29 Plt Count 290 K/uL (152-406) 10/06/18 05:29 PT 11.7 SECONDS (9.5-12.5) 10/05/18 06:34 INR 0.99 10/05/18 06:34 Sodium 139 mmol/L (136-145) 10/06/18 05:29 Potassium 4.7 mmol/L (3.5-5.1) 10/06/18 05:29 BUN 29 mg/dL (7-18) H 10/06/18 05:29 Creatinine 0.65 mg/dL (0.55-1.3) 10/06/18 05:29 Glucose 105 mg/dL (74-106) 10/06/18 05:29 Magnesium 1.9 mg/dL (1.8-2.4) 10/06/18 05:29 Total Bilirubin 0.6 mg/dL (0.2-1.0) 10/05/18 06:34 AST 12 U/L (15-37) L 10/05/18 06:34 ALT 13 U/L (12-78) 10/05/18 06:34 Alkaline Phosphatase 103 U/L (45-117) 10/05/18 06:34 Troponin I 0.09 ng/mL (0.0-0.045) H 10/05/18 20:31 Triglycerides 71 mg/dL (<150) 10/06/18 05:29 Cholesterol 117 mg/dL (<200) 10/06/18 05:29 HDL Cholesterol 62 mg/dL (40-60) H 10/06/18 05:29 Cholesterol/HDL Ratio 1.89 10/06/18 05:29 Home Medications: Fluticasone/Salmeterol [Advair 250/50 Diskus*] 1 puff IH BID 08/17/12 Ipratropium/Albuterol Sulfate [Combivent Respimat 20-100 Mcg] 2 puff IH Q6H PRN 08/08/18 Montelukast [Singulair*] 10 mg PO DAILY 08/08/18 Omeprazole [Prilosec] 20 mg PO DAILY 08/08/18 Tiotropium [Spiriva Handihaler*] 2 puff IH DAILY 08/08/18 Sotalol HCl [Betapace*] 40 mg PO BID #30 tab 08/12/18 Albuterol Neb [Proventil 0.083% Neb Soln] 2.5 mg IH QID PRN 10/05/18 Furosemide [Lasix*] 40 mg PO DAILY 10/05/18 Lisinopril/Hydrochlorothiazide [Lisinopril-Hctz 20-12.5 mg Tab] 1 each PO DAILY 10/05/18 predniSONE [Prednisone*] 20 mg PO BID #20 tab 10/08/18 New Medications: predniSONE [Prednisone*] 20 mg PO BID #20 tab Patient Discharge Instructions: Please f.u with PCP and Dr Hicks in 1 to 2 week post discharge. New medication. Prednisone 20mg BID Diet: Regular Followup: Justo Salazar MD [ACTIVE - CAN ADMIT] - 1 Week
== END 2018-10-08 15:05 | disposition home or self-care (01) | DRG 190 ==
LOC: ER 06:11 → ERHOLD 09:16 → 2ND 10:37 → ERHOLD 11:02 → 2ND 11:10 → OBSVTOIN 10-07 10:05
PROVIDERS: ADMIT Family Medicine; ATTEND Family Medicine
PROC: 5A09357 Assistance with Respiratory Ventilation, Less than 24 Consecutive Hours, Continuous Positive Airway Pressure (ICD-10-PCS; principal; 2018-10-06)
DX: J44.1 Chronic obstructive pulmonary disease with (acute) exacerbation (principal); J15.5 Pneumonia due to Escherichia coli; J96.22 Acute and chronic respiratory failure with hypercapnia; J96.21 Acute and chronic respiratory failure with hypoxia; J90 Pleural effusion, not elsewhere classified; J44.0 Chronic obstructive pulmonary disease with (acute) lower respiratory infection; F17.210 Nicotine dependence, cigarettes, uncomplicated; Z99.81 Dependence on supplemental oxygen; I48.2 Chronic atrial fibrillation; I27.20 Pulmonary hypertension, unspecified; F10.10 Alcohol abuse, uncomplicated; Z91.19 Patient's noncompliance with other medical treatment and regimen; Z91.14 Patient's other noncompliance with medication regimen; I10 Essential (primary) hypertension; K21.9 Gastro-esophageal reflux disease without esophagitis; Z87.01 Personal history of pneumonia (recurrent); Z98.84 Bariatric surgery status
CPT/HCPCS: 36415; 71045; 71046; 71250; 80048; 80061; 80076; 81003; 81015; 82550; 82553; 82607; 82805; 83605; 83735; 83880; 84145; 84443; 84484; 85025; 85610; 87040; 87070; 87077; 87186; 87205; 93005; 93306; 93970; 94660; 96365; 96367; 96368; 97116; 97163; 97530; 99285; G0378; J0456; J0696; J1650; J3475; J7030; J7512; J7605